=== PATIENT | female | born 1945 | race Caucasian/White ===

== ENCOUNTER 2017-11-27 16:46 | Emergency (ER) | payer MEDICARE, SELFPAY ==
[2017-11-27 16:50] VITALS: BP 122/56; PULSE 82; RESP 16; TEMP 36.3; O2SAT 97
--- NOTE | 2017-11-27 17:36 | W.ED.GENAD ---
Discharge Plan Disposition Patient Disposition: HOME Condition: Stable Discharge Details Chief Complaint: Cellulitis Clinical Impression: Cellulitis of leg, right Primary Care Provider: Homero Villafana ED Provider: Serjio Lagunas Home Meds and New Rx's Prescriptions: New cephalexin 500 mg capsule 500 mg PO QID 7 Days Qty: 28 RF: 0 Continue furosemide 40 MG tablet 40 mg PO BID RF: 0 amiodarone 200 MG tablet 200 mg PO DAILY RF: 0 aspirin [Aspir-81] 81 MG tablet,delayed release (DR/EC) 81 mg PO DAILY RF: 0 lisinopril 10 MG tablet 10 mg PO DAILY RF: 0 metoprolol tartrate 50 MG tablet 50 mg PO DAILY RF: 0 Discharge Instructions Instructions: Cellulitis (ED) Additional Instructions: Return to the emergency department for any new or significant worsening of symptoms, rapid progression of rash, high fevers, or any further concerns he may have. Otherwise take antibiotics as prescribed and until fully gone and follow-up with your primary care provider as needed for reassessment. Referrals: Homero Villafana, [Primary Care Provider] - (As needed for reassessment or if not improving on antibiotic) Discharge Data Discharge Date/Time-TO BE ENTERED AT DEPARTURE: 11/27/17 18:16 Medical Decision Making Patient presenting to the emergency department for chief complaint of reddened rash/cellulitis to right lower leg. She states that 4 weeks ago she had a similar episode that was smaller to the left anterior garza which resolved. 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 3 days ago she had generalized malaise and then noticed a small reddened area to her right medial ankle. Over the past 2 days the redness has spread along with increase in pain and discomfort. Patient denies any fever or other symptoms physical exam is remarkable for patchy erythema to the right lower extremity mostly on the anterior garza. This is not circumferential, there is no edema, there is some warmth. Patient has no calf tenderness, medial thigh tenderness, and denies any chest pain or shortness of breath. Presentation is most likely cellulitis in nature. DVT is also considered in the differential diagnosis but I doubt this being the etiology given no calf or thigh tenderness and that erythema is not uniform and there is no's significant swelling throughout the lower extremity. Patient placed upon Keflex 4 times daily for 7 days and encouraged to return for any rapid progression or worsening of symptoms otherwise follow-up with primary care as needed for reassess. After discussion of diagnosis and plan of care patient is no further needs, questions, or concerns and states clear understanding to return to the emergency department for any worsening symptoms. HPI General Mode of arrival: ambulatory. Date/Time Provider Initiated Documentation: 11/27/17 17:03. Limitations to Documentation: no limitations. Information obtained by: patient, RN notes reviewed and old records reviewed. History of Present Illness 72 year old F presents to the emergency department with the chief complaint of Right leg rash, described as mild, with intensity rated at 5. Quality is described as aching and dull, and is localized to the right and lower extremity. Patient reports no radiation. Patient started experiencing this day(s) (2) and it has been constant. No relieving factors improve symptom(s), No exacerbating factors reported . Patient notes malaise. Patient did receive the following treatments prior to arrival, none Related Data Home Medications Medication Instructions Recorded Confirmed amiodarone 200 mg PO DAILY 11/08/16 11/27/17 aspirin [Aspir-81] 81 mg PO DAILY 11/08/16 11/27/17 furosemide 40 mg PO BID 11/08/16 11/27/17 lisinopril 10 mg PO DAILY 11/08/16 11/27/17 metoprolol tartrate 50 mg PO DAILY 11/08/16 11/27/17 cephalexin 500 mg PO QID 7 Days #28 cap 11/27/17 Previous Rx's Medication Instructions Recorded cephalexin 500 mg PO QID 7 Days #28 cap 11/27/17 Allergies Allergy/AdvReac Type Severity Reaction Status Date / Time Latex, Natural Rubber Allergy Skin Rash Unverified 11/27/17 16:55 General Stated Complaint: Cellulitis VICTORIANO: 4 Review of Systems Constitutional Denies chills, Denies fever(s) and Reports malaise ENT Denies dizziness Cardiovascular Denies chest pain, Denies syncope and Denies dyspnea Respiratory Denies cough and Denies dyspnea Gastrointestinal Denies abdominal pain, Denies nausea and Denies vomiting Musculoskeletal Denies myalgias and Denies arthralgias Integumentary/Breasts Reports as per HPI, Reports erythema, Reports rash and Reports sores Neurologic Denies confusion, Denies dizziness and Denies syncope Psychiatric Denies confusion PFSH Medical History Hypertension (Chronic) Social History Smoking/Tobacco Use Status: Former Tobacco Use Exam Const General: cooperative, no acute distress and not ill appearing Orientation: alert, awake and oriented x3 HENMT Mouth: moist mucous membranes Resp Effort & Inspection: normal respiratory effort, able to speak in complete sentences and no respiratory distress Cardio Rate: regular rate Rhythm: regular rhythm Skin General skin exam: no rashes or lesions noted Neuro General: alert, awake, oriented x3, moves all extremities and no focal motor deficits Sensory Exam: no sensory deficits noted Extrem General: normal exam except as noted Right lower extremity: full ROM, normal capillary refill and lower leg Details: erythema Location: of the mid lower leg Location: anteriorly Left lower extremity: normal to inspection and full ROM Course Vital Signs Temperature 36.3 C L 11/27/17 16:50 Pulse 82 11/27/17 16:50 Respiratory Rate 16 11/27/17 16:50 Blood Pressure 122/56 L 11/27/17 16:50 Pulse Oximetry 97 11/27/17 16:50 Temperature 36.3 C L 11/27/17 16:50 Temperature Source Skin 11/27/17 16:50 Pulse 82 11/27/17 16:50 Respiratory Rate 16 11/27/17 16:50 Respiratory Effort 11/27/17 16:53 Blood Pressure 122/56 L 11/27/17 16:50 Pulse Oximetry 97 11/27/17 16:50 Pain Level 5 11/27/17 16:50
--- NOTE | 2017-11-27 17:44 | ED.GENADUL_ITS ---
Discharge Plan Disposition Patient Disposition: HOME Condition: Stable Discharge Details Chief Complaint: Cellulitis Clinical Impression: Cellulitis of leg, right Primary Care Provider: Homero Villafana ED Provider: Serjio Lagunas Home Meds and New Rx's Prescriptions: New cephalexin 500 mg capsule 500 mg PO QID 7 Days Qty: 28 RF: 0 Continue furosemide 40 MG tablet 40 mg PO BID RF: 0 amiodarone 200 MG tablet 200 mg PO DAILY RF: 0 aspirin [Aspir-81] 81 MG tablet,delayed release (DR/EC) 81 mg PO DAILY RF: 0 lisinopril 10 MG tablet 10 mg PO DAILY RF: 0 metoprolol tartrate 50 MG tablet 50 mg PO DAILY RF: 0 Discharge Instructions Instructions: Cellulitis (ED) Additional Instructions: Return to the emergency department for any new or significant worsening of symptoms, rapid progression of rash, high fevers, or any further concerns he may have. Otherwise take antibiotics as prescribed and until fully gone and follow-up with your primary care provider as needed for reassessment. Referrals: Homero Villafana, [Primary Care Provider] - (As needed for reassessment or if not improving on antibiotic) Discharge Data Discharge Date/Time-TO BE ENTERED AT DEPARTURE: 11/27/17 18:16 Medical Decision Making Patient presenting to the emergency department for chief complaint of reddened rash/cellulitis to right lower leg. She states that 4 weeks ago she had a similar episode that was smaller to the left anterior garza which resolved. 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 3 days ago she had generalized malaise and then noticed a small reddened area to her right medial ankle. Over the past 2 days the redness has spread along with increase in pain and discomfort. Patient denies any fever or other symptoms physical exam is remarkable for patchy erythema to the right lower extremity mostly on the anterior garza. This is not circumferential, there is no edema, there is some warmth. Patient has no calf tenderness, medial thigh tenderness, and denies any chest pain or shortness of breath. Presentation is most likely cellulitis in nature. DVT is also considered in the differential diagnosis but I doubt this being the etiology given no calf or thigh tenderness and that erythema is not uniform and there is no's significant swelling throughout the lower extremity. Patient placed upon Keflex 4 times daily for 7 days and encouraged to return for any rapid progression or worsening of symptoms otherwise follow-up with primary care as needed for reassess. After discussion of diagnosis and plan of care patient is no further needs, questions, or concerns and states clear understanding to return to the emergency department for any worsening symptoms. HPI General Mode of arrival: ambulatory . Date/Time Provider Initiated Documentation: 11/27/17 17:03 . Limitations to Documentation: no limitations . Information obtained by: patient, RN notes reviewed and old records reviewed . History of Present Illness 72 year old F presents to the emergency department with the chief complaint of Right leg rash, described as mild, with intensity rated at 5. Quality is described as aching and dull, and is localized to the right and lower extremity. Patient reports no radiation. Patient started experiencing this day(s) (2) and it has been constant. No relieving factors improve symptom(s) , No exacerbating factors reported . Patient notes malaise. Patient did receive the following treatments prior to arrival, none Related Data Home Medications Medication Instructions Recorded Confirmed amiodarone 200 mg PO DAILY 11/08/16 11/27/17 aspirin [Aspir-81] 81 mg PO DAILY 11/08/16 11/27/17 furosemide 40 mg PO BID 11/08/16 11/27/17 lisinopril 10 mg PO DAILY 11/08/16 11/27/17 metoprolol tartrate 50 mg PO DAILY 11/08/16 11/27/17 cephalexin 500 mg PO QID 7 Days #28 cap 11/27/17 Previous Rx's Medication Instructions Recorded cephalexin 500 mg PO QID 7 Days #28 cap 11/27/17 Allergies Allergy/AdvReac Type Severity Reaction Status Date / Time Latex, Natural Rubber Allergy Skin Rash Unverified 11/27/17 16:55 General Stated Complaint: Cellulitis VICTORIANO: 4 Review of Systems Constitutional Denies chills, Denies fever(s) and Reports malaise ENT Denies dizziness Cardiovascular Denies chest pain, Denies syncope and Denies dyspnea Respiratory Denies cough and Denies dyspnea Gastrointestinal Denies abdominal pain, Denies nausea and Denies vomiting Musculoskeletal Denies myalgias and Denies arthralgias Integumentary/Breasts Reports as per HPI, Reports erythema, Reports rash and Reports sores Neurologic Denies confusion, Denies dizziness and Denies syncope Psychiatric Denies confusion PFSH Medical History Hypertension (Chronic) Social History Smoking/Tobacco Use Status: Former Tobacco Use Exam Const General: cooperative, no acute distress and not ill appearing Orientation: alert, awake and oriented x3 HENMT Mouth: moist mucous membranes Resp Effort & Inspection: normal respiratory effort, able to speak in complete sentences and no respiratory distress Cardio Rate: regular rate Rhythm: regular rhythm Skin General skin exam: no rashes or lesions noted Neuro General: alert, awake, oriented x3, moves all extremities and no focal motor deficits Sensory Exam: no sensory deficits noted Extrem General: normal exam except as noted Right lower extremity: full ROM, normal capillary refill and lower leg Details: erythema Location: of the mid lower leg Location: anteriorly Left lower extremity: normal to inspection and full ROM Course Vital Signs Temperature 36.3 C L 11/27/17 16:50 Pulse 82 11/27/17 16:50 Respiratory Rate 16 11/27/17 16:50 Blood Pressure 122/56 L 11/27/17 16:50 Pulse Oximetry 97 11/27/17 16:50 Temperature 36.3 C L 11/27/17 16:50 Temperature Source Skin 11/27/17 16:50 Pulse 82 11/27/17 16:50 Respiratory Rate 16 11/27/17 16:50 Respiratory Effort 11/27/17 16:53 Blood Pressure 122/56 L 11/27/17 16:50 Pulse Oximetry 97 11/27/17 16:50 Pain Level 5 11/27/17 16:50
[2017-11-27] MEDS: Cephalexin 500 MG CAP PO (18:05)
[2017-11-27] MEDS: Cephalexin 500 MG CAP 1000 MG PO (18:05)
--- NOTE | 2017-12-04 16:37 | W.ED.FU ---
Patient called the emergency department concerned for possible need of more antibiotics. Patient has been on Keflex 500 mg every 6 hours for the past 6 days and noting improvement of symptoms but not full resolution. Patient did state that she may have bumped her leg again and does have a small red spot that is not consistent with the other ones but she is just concerned going into the weekend and almost finishing her antibiotics. Thoroughly discussed with the patient that for any new or worsening symptoms that she needs to be reassessed or reevaluated otherwise that I was willing to extend her Keflex for 3 additional days for a total of 10-day course of Keflex. Due to patient not having full resolution of symptoms towards the end of antibiotics I did inform her that she should obtain a appointment with her primary care provider for reassessment next week for possible need of additional antibiotic therapy or coverage. Patient states that overall she has been having improvement of symptoms and is just more concerned about the weekend. After thorough discussion of recommendation to have primary care follow-up next week , need to return to the emergency department or have reassessment immediately for any worsening symptoms. and that I was willing to extend for 3 days, she states full understanding and no further needs, questions, or concerns at this time. Keflex 500 mg every 6 hours for additional 3 days was called into patient's pharmacy.
== END 2017-11-27 18:16 | disposition home or self-care (01) ==
PROVIDERS: Emergency Provider Nurse Practitioner Family; PCP Emergency Medicine
DX: L03.115 Cellulitis of right lower limb (principal); I10 Essential (primary) hypertension
CPT/HCPCS: 99283

== ENCOUNTER 2018-03-30 16:22 | Emergency (ER) | payer MEDICARE, SELFPAY ==
[2018-03-30 16:28] VITALS: BP 109/89; PULSE 70; RESP 20; TEMP 36.6; O2SAT 98
--- NOTE | 2018-03-30 16:52 | ED.GENADUL_ITS ---
Discharge Plan Disposition Patient Disposition: HOME Condition: Stable Discharge Details Chief Complaint: Orthopedic Clinical Impression: Left ankle sprain Primary Care Provider: Homero Villafana ED Provider: Elisabeth Ugarte Home Meds and New Rx's Prescriptions: Continued furosemide 40 MG tablet 40 mg PO BID RF: 0 amiodarone 200 MG tablet 200 mg PO DAILY RF: 0 aspirin [Aspir-81] 81 MG tablet,delayed release (DR/EC) 81 mg PO DAILY RF: 0 metoprolol tartrate 50 MG tablet 50 mg PO DAILY RF: 0 lisinopril 10 mg tablet 15 mg PO DAILY RF: 0 Discharge Instructions Instructions: Ankle Sprain (ED) Additional Instructions: Rest, ice, elevate left ankle is much as possible. If your symptoms persist or worsen, follow-up with orthopedics. Return to the emergency department with any concerns. Referrals: Loco Newman MD [ [facility] STAFF PHYSICIAN] - Discharge Data Discharge Date/Time-TO BE ENTERED AT DEPARTURE: 03/30/18 18:40 Discharge Physician: Elisabeth Ugarte Medical Decision Making 72-year-old female who presents with left ankle pain and swelling after twisting her ankle 5 days ago. She has healing ecchymosis and edema to the left lateral malleolus. No deformity. Neurovascular intact. Will send for left ankle x-ray. 1800 -- xray notes soft tissue swelling but no acute fracture. Patient advised on rest, ice, elevate. Patient has an [place] wrap and crutches at home and declines [place] wrap or splint here. Patient instructed to follow-up with orthopedics if symptoms persist or worsen, and to return here with any concerns. Medical Records Medical records reviewed: Yes I reviewed the patient's medical records. Imaging Data Radiologic Study: Radiologist's impression: XR Left ankle 3 or more views. FINDINGS: Bones/joints: There is no evidence of acute fracture. Soft tissues: Bimalleolar soft tissue swelling. Well-corticated ossific fragments adjacent to the tarsal bones may represent avulsion fractures of unknown age IMPRESSION: Bimalleolar soft tissue swelling. There is no evidence of acute fracture. HPI General Mode of arrival: ambulatory . Date/Time Provider Initiated Documentation: 03/30/18 16:33 . Limitations to Documentation: no limitations . Information obtained by: patient . HPI Narrative: Patient is a 72-year-old female presents with left ankle pain after slip and fall twisting left ankle 5 days ago. She has been taking ibuprofen for pain. She states she was encouraged to come to the ER by family member for an x-ray. Related Data Home Medications Medication Instructions Recorded Confirmed amiodarone 200 mg PO DAILY 11/08/16 03/30/18 aspirin [Aspir-81] 81 mg PO DAILY 11/08/16 03/30/18 furosemide 40 mg PO BID 11/08/16 03/30/18 metoprolol tartrate 50 mg PO DAILY 11/08/16 03/30/18 lisinopril 10 mg tablet 15 mg PO DAILY tab 02/13/18 03/30/18 Allergies Allergy/AdvReac Type Severity Reaction Status Date / Time Latex, Natural Rubber Allergy Skin Rash Unverified 03/30/18 16:30 General Stated Complaint: Orthopedic VICTORIANO: 3 Review of Systems Review of Systems All systems reviewed & are unremarkable except as noted in HPI and below Constitutional Reports as per HPI, Denies chills and Denies fever(s) Eyes Denies blurry vision ENT Denies dizziness, Denies sore throat and Denies throat swelling Cardiovascular Denies chest pain and Denies dyspnea Respiratory Denies cough and Denies dyspnea Gastrointestinal Denies abdominal pain, Denies diarrhea and Denies vomiting Genitourinary Denies hematuria and Denies dysuria Musculoskeletal Denies back pain and Denies numbness Integumentary/Breasts Denies lesions and Denies rash Neurologic Denies dizziness, Denies focal weakness and Denies numbness Allergic/Immunologic Denies throat swelling [facility] Medical History CHF (congestive heart failure) (Chronic) Hypothyroidism (Chronic) Myocardial infarction (Chronic) Hypertension (Chronic) Surgical History H/O section (Chronic) History of coronary artery stent placement (Chronic) Social History Smoking and Tabacco status: Former Tobacco Use alcohol intake: never substance use type: does not use Exam Const General: cooperative, healthy appearing and no acute distress HENMT Head: normal to inspection Face and sinus: normal facial exam Eyes General: appearance normal, both eyes and all related structures Neck Neck: normal visual inspection Resp Effort & Inspection: normal respiratory effort and able to speak in complete sentences Cardio Rate: regular rate Skin General skin exam: no rashes or lesions noted Neuro General: alert, awake and oriented x3 Cognition: normal cognition Speech: speech normal Extrem Left lower extremity: ankle Details: tenderness Location: of the lateral malleolus, pitting edema (lateral malleolus), ecchymosis (healing, green and yellow extending from distal leg down to ankle) and other (No deformity noted. ) and foot (No left fifth metatarsal tenderness ) Details: vascular exam Details: dorsalis pedis pulse present and posterior tibial pulse present Psych Appearance: grossly normal Mental Status: mental status grossly normal Speech and Movement: speech and movement normal Affect: normal affect Course Vital Signs Temperature 97.9 F 03/30/18 16:28 Pulse 70 03/30/18 16:28 Respiratory Rate 20 03/30/18 16:28 Blood Pressure 109/89 03/30/18 16:28 Pulse Oximetry 98 03/30/18 16:28 Temperature 97.9 F 03/30/18 16:28 Temperature Source Temporal Artery Scan 03/30/18 16:28 Pulse 70 03/30/18 16:28 Respiratory Rate 20 03/30/18 16:28 Respiratory Effort Non-Labored 03/30/18 16:28 Blood Pressure 109/89 03/30/18 16:28 Blood Pressure Position Sitting 03/30/18 16:28 Pulse Oximetry 98 03/30/18 16:28 Oxygen Delivery Method Room Air 03/30/18 16:28 Oxygen Flow Rate 0 03/30/18 16:28 Pain Level 3 03/30/18 16:31
--- NOTE | 2018-03-30 16:58 | DI.RAD_ITS ---
SYMPTOM/DIAGNOSIS: S/P FALL, R/O ACUTE FRACTURE LEFT ANKLE: 3 views. No acute fracture or dislocation is seen. Well corticated osseous fragments are seen adjacent to the tarsal bones and the calcaneus. There is a small calcaneal spur. There is soft tissue swelling seen around the ankle bilaterally. IMPRESSION: No definite acute fracture or dislocation.
--- NOTE | 2018-03-30 17:52 | DI.VRAD_ITS ---
EXAM: XR Left Ankle Complete, 3 or more Views EXAM DATE/TIME: 03/30/2018 5:01 PM CLINICAL HISTORY: 72 years old, female; Pain; Ankle; Left; Patient HX: Pain left ankle TECHNIQUE: XR Left ankle 3 or more views. COMPARISON: No relevant prior studies available. FINDINGS: Bones/joints: There is no evidence of acute fracture. Soft tissues: Bimalleolar soft tissue swelling. Well-corticated ossific fragments adjacent to the tarsal bones may represent avulsion fractures of unknown age IMPRESSION: Bimalleolar soft tissue swelling. There is no evidence of acute fracture. Dictated and Authenticated by: Caryn Andrade MD. Ordering:RYANN Barber MD
== END 2018-03-30 18:40 | disposition home or self-care (01) ==
PROVIDERS: Emergency Provider Physician Assistant; PCP Emergency Medicine
DX: S93.402A Sprain of unspecified ligament of left ankle, initial encounter (principal); W01.0XXA Fall on same level from slipping, tripping and stumbling without subsequent striking against object, initial encounter
CPT/HCPCS: 99283; 73610; 99282

== ENCOUNTER 2018-06-30 11:19 | Outpatient (CLI) | payer MEDICARE, SELFPAY ==
--- NOTE | 2018-06-30 11:14 | DI.RAD_ITS ---
SYMPTOMS/DIAGNOSIS: PAIN RIGHT SHOULDER: There is spurring at the AC joint. There is spurring at the undersurface of the acromion, as well as glenoid and greater tuberosity. There is a question of some narrowing of the acromiohumeral distance, which could indicate a chronic rotator cuff tear. A loose body is seen involving the level of the glenoid. IMPRESSION: Degenerative changes and joint space loose body. Probable chronic rotator cuff tear.
== END 2018-06-30 11:39 ==
PROVIDERS: PCP Emergency Medicine; Referring Provider Emergency Medicine; Visit Provider Orthopaedic Surgery
DX: M25.511 Pain in right shoulder (principal); M19.011 Primary osteoarthritis, right shoulder; M24.011 Loose body in right shoulder; M75.100 Unspecified rotator cuff tear or rupture of unspecified shoulder, not specified as traumatic
CPT/HCPCS: 20610; 99201; 99213; 73030; J1040

== ENCOUNTER → 2018-08-11 11:01 | Outpatient (BNVA) | payer MEDICARE, SELFPAY | PROVIDERS: PCP Emergency Medicine; Referring Provider Emergency Medicine; Visit Provider Orthopaedic Surgery | DX: M25.511 Pain in right shoulder (principal); Z95.810 Presence of automatic (implantable) cardiac defibrillator; I11.0 Hypertensive heart disease with heart failure; I50.9 Heart failure, unspecified | CPT/HCPCS: 20610; 99213; J1040 ==

== ENCOUNTER 2019-04-06 16:02 | Outpatient (CLI) | payer MEDICARE, SELFPAY ==
--- NOTE | 2019-04-06 09:15 | DI.RAD_ITS ---
EXAM: XR SHOULDER LT COMPLETE 2+V INDICATION: pain. COMPARISON: XR shoulder RT complete 2+V from 06/30/2018 TECHNIQUE: 2D digital imaging was performed. FINDINGS: There are degenerative changes in the left shoulder particularly at the acromioclavicular joint and t he greater tuberosity. No acute fracture or dislocation is present. The soft tissues are unremarkab le. IMPRESSION: Mild degenerative changes.
== END 2019-04-06 16:22 ==
PROVIDERS: PCP Emergency Medicine; Referring Provider Emergency Medicine; Visit Provider Orthopaedic Surgery
DX: M25.512 Pain in left shoulder (principal); M19.012 Primary osteoarthritis, left shoulder; M75.101 Unspecified rotator cuff tear or rupture of right shoulder, not specified as traumatic; M75.82 Other shoulder lesions, left shoulder
CPT/HCPCS: 20610; 99214; 73030; J1040

== ENCOUNTER 2019-06-21 13:31 | Emergency (ER) | payer MEDICARE, SELFPAY ==
[2019-06-21] VITALS (15 sets, daily range): BP systolic 133–160; BP diastolic 82–89; PULSE 63–89; RESP 4–21; TEMP 36.6; O2SAT 97–100
--- NOTE | 2019-06-21 13:42 | ED.GENADUL_ITS ---
Discharge Plan Disposition Patient Disposition: HOME Condition: Stable Discharge Details Chief Complaint: Fever Clinical Impression: Acute bronchitis Primary Care Provider: Homero Villafana ED Provider: Elisabeth Ugarte Home Meds and New Rx's Prescriptions: New prednisone 20 mg tablet See Rx Instructions .ROUTE .COMPLEX Qty: 12 RF: 0 albuterol sulfate 90 mcg/actuation aerosol powdr breath activated 2 inh IH Q6H PRN (Reason: shortness of breath or wheezing) Qty: 1 RF: 0 codeine-guaifenesin 10-100 mg/5 mL liquid 10 ml PO Q6H PRN (Reason: cough) Qty: 100 RF: 0 Continued ibuprofen 200 mg capsule 200 mg PO QID PRNRF: 0 tramadol 50 mg tablet 50 mg PO Q8H PRNRF: 0 furosemide 40 MG tablet 40 mg PO DAILY RF: 0 amiodarone 200 MG tablet 200 mg PO DAILY RF: 0 aspirin [Aspir-81] 81 MG tablet,delayed release (DR/EC) 81 mg PO DAILY RF: 0 metoprolol tartrate 50 MG tablet 50 mg PO DAILY RF: 0 lisinopril 10 mg tablet 15 mg PO DAILY RF: 0 Discharge Instructions Instructions: Acute Bronchitis (ED) Additional Instructions: Drink plenty of fluids and get plenty of rest. Take the steroids until finished. Use the albuterol inhaler as needed and directed for shortness of breath or cough. Take the cough medicine at night to help with coughing and sleep. Follow-up with your primary care doctor in 1 week. Return to the emergency department with any worsening or new concerning symp toms. Discharge Data Discharge Date/Time-TO BE ENTERED AT DEPARTURE: 06/21/19 16:34 Discharge Physician: Elisabeth Ugatre Medical Decision Making [id number] -- 74-year-old female with a history of CHF, hypertension, myocardial infarction with coronary stents and ICD placement presents for dry cough and intermittent shortness of breath over the past 5 days. Triage note stated slurred speech and difficulty with coming up with words but patient states this is been chronic for years and no worse than usual. She states she would not have come to the ER if not for the insistence of her children for further evaluation of her cough. She has scattered wheezing right chest. No lower extremity edema. She appears nontoxic. No focal deficits. Differential diagnosis includes bronchitis, pneumonia, CHF exacerbation, [place], allergies, GERD. History and presentation not consistent with acute CVA. Will place an IV, screening labs, neb treatment, p.o. steroids, chest x-ray and CT head. 1545 --labs and imaging reviewed. Normal white blood cell count. Troponin negative. BNP 2426. CT head and chest x-ray negative. Patient reassessed -- she is requesting to go home. She states she feels better. Reassessment of lungs clear without wheezing, rales or rhonchi. Vitals within normal limits. She is speaking in full sentences and no signs of respiratory distress. Discussed with patient that presentation most likely resembles bronchitis and will plan to treat with p.o. steroids, albuterol inhaler and Robitussin with codeine. She has no reported fever, normal white blood cell count and no sputum production, will hold on antibiotics. Results also discussed with patient's son. He is advised to have patient call the PCP office this week for follow-up and to return with any worsening symptoms. Medical Records Medical records reviewed: Yes I reviewed the patient's medical records. Imaging Data Radiologic Study: Radiologist's impression: CT HEAD WO CLINICAL HISTORY: slurred speech, difficulty w/ words. TECHNIQUE: Imaging Protocol: Axial computed tomography images with coronal and sagittal reformatted images were created and reviewed COMPARISON: No exams were available for comparison FINDINGS: No intracranial hemorrhage, mass or acute infarct is seen. There is akyg-[id number] atrophy as well as white matter changes likely representing small vessel disease. Ventricles are within normal limits in size. There is no skull fracture. There is mucosal thickening of the left frontal and left maxillary sinus. IMPRESSION: No acute intracranial process. XR PORTABLE CHEST AP CLINICAL HISTORY: <cough, sob, r/o acute disease> TECHNIQUE: 2D digital imaging was performed. COMPARISON: CHEST 2 VIEWS PA,LAT from 12/01/2011 FINDINGS: LUNGS: Clear. No pleural abnormality seen. HEART: Heart size is normal. Coronary artery stents are seen. A pacemaker is noted. MEDIASTINUM: Normal. IMPRESSION: No acute pulmonary findings. Lab Data Lab results reviewed: Yes I reviewed the patient's lab results. Labs: Laboratory Tests Range/Units 06/21/19 06/21/19 14:20 14:20 WBC (4.4-10.8) k/cumm 8.40 RBC (4.00-5.20) m/cumm 4.32 Hgb (12.0-15.5) g/dL 13.9 Hct (36.0-46.0) % 42.2 MCV (80-95) fL 97.7 H MCH (27.0-33.0) pg 32.2 MCHC (32.0-36.0) g/dL 32.9 RDW (11.7-14.6) % 13.6 Plt Count (130-400) x1000/uL 234 MPV (8.0-11.0) fL 10.1 Immature Gran % % 0.1 Neutrophils % 68.8 Lymphocytes % 17.7 Monocytes % 8.7 Eosinophils % 4.3 Basophils % 0.4 Absolute Neutrophils (1.2-6.7) k/cumm 5.78 Absolute Lymphocytes (1.2-3.4) k/cumm 1.49 Absolute Monocytes (0.11-0.7) k/cumm 0.73 H Absolute Eosinophils (0.0-0.7) k/cumm 0.36 Absolute Basophils (0.0-0.2) k/cumm 0.03 Sodium (136-145) mmol/L 136 Potassium (3.5-5.1) mmol/L 4.8 Chloride (98-107) mmol/L 103 Carbon Dioxide (21.0-32.0) mmol/L 26.1 Anion Gap (3-11) mmol/L 6.9 BUN (7-18) mg/dL 27 H Creatinine (0.55-1.02) mg/dL 1.32 H Estimated GFR/1.73 m2 (mL/min/1.73m2) 39.34 Glucose (74-106) mg/dL 94 Calcium (8.5-10.1) mg/dL 9.2 Magnesium (1.8-2.4) mg/dL 2.1 Total Bilirubin (0.2-1.0) mg/dL 0.5 AST (15-37) U/L 19 ALT (14-59) U/L 23 Alkaline Phosphatase (46-116) U/L 84 Troponin I (<0.06) ng/Ml < 0.05 NT-Pro-B Natriuret Pep (<300) pg/mL 2426 H Total Protein (6.4-8.2) g/dL 6.8 Albumin (3.4-5.0) g/dL 3.7 ECG Data Attestation: I personally reviewed and interpreted this ECG (s) as follows: Interpretation: Rate of 71, sinus, occasional PVCs. No acute ST elevation or depression. HI 168. QTc 417. QRS 94. HPI General Mode of arrival: ambulatory . Date/Time Provider Initiated Documentation: 06/21/19 13:35 . Limitations to Documentation: no limitations . Information obtained by: patient . HPI Narrative: Patient is a 74-year-old female with a history of CHF, myocardial infarction with coronary stent placement, ICD, hypothyroidism who presents with dry cough and intermittent shortness of breath over the past 5 days. Patient states the cough is worse at night and keeping her up at times. She has taken Masury medication without relief. She admits to occasional shortness of breath which she states is not unusual for her at times chronically. She denies any fever, chest pain, vomiting, diarrhea, urinary symptoms or abdominal pain. She does admit to decreased appetite. She denies any recent travel, exposure to contact with coronavirus. Triage note also stated that patient has had slurred speech and difficulty finding words. Patient states this is been chronic for several years and no worse than usual. She states her children say that she has this issue for years and they get frustrated with her. She states she only came here because of the cough and would not of, if not for the insistence of her children. Related Data Home Medications Medication Instructions Recorded Confirmed amiodarone 200 mg PO DAILY 11/08/16 04/06/19 aspirin [Aspir-81] 81 mg PO DAILY 11/08/16 06/21/19 furosemide 40 mg PO DAILY 11/08/16 06/21/19 metoprolol tartrate 50 mg PO DAILY 11/08/16 04/06/19 lisinopril 10 mg tablet 15 mg PO DAILY tab 02/13/18 06/21/19 ibuprofen 200 mg capsule 200 mg PO QID PRN 06/19/18 06/21/19 tramadol 50 mg tablet 50 mg PO Q8H PRN 04/06/19 04/06/19 albuterol sulfate 2 inh IH Q6H PRN #1 each 06/21/19 codeine-guaifenesin 10 ml PO Q6H PRN #100 ml 06/21/19 prednisone See Rx Instructions .ROUTE 06/21/19 .COMPLEX #12 tab Previous Rx's Medication Instructions Recorded albuterol sulfate 2 inh IH Q6H PRN #1 each 06/21/19 codeine-guaifenesin 10 ml PO Q6H PRN #100 ml 06/21/19 prednisone See Rx Instructions .ROUTE 06/21/19 .COMPLEX #12 tab Allergies Allergy/AdvReac Type Severity Reaction Status Date / Time Latex, Natural Rubber Allergy Skin Rash Verified 06/21/19 13:58 General VICTORIANO: 3 Review of Systems All systems reviewed & are unremarkable except as noted in HPI and below Constitutional Constitutional: Reports as per HPI, Denies chills and Denies fever(s) Eyes Eyes: Denies blurry vision ENT Ears, Nose, Mouth, and Throat: Denies dizziness, Denies sore throat and Denies throat swelling Cardiovascular Cardiovascular: Denies chest pain and Reports dyspnea Respiratory Respiratory: Reports cough and Reports dyspnea Gastrointestinal Gastrointestinal: Denies abdominal pain, Denies diarrhea and Denies vomiting Genitourinary Genitourinary: Denies hematuria and Denies dysuria Musculoskeletal Musculoskeletal: Denies back pain and Denies numbness Integumentary/Breasts Skin/Breast: Denies lesions and Denies rash Neurologic Neurologic: Denies dizziness, Denies localized weakness and Denies numbness Allergic/Immunologic Allergic/Immunologic: Denies throat swelling [facility] Medical History (Updated 06/21/19 @ 15:49 by Elisabeth Ugarte DO) CHF (congestive heart failure) (Chronic) Hypertension (Chronic) Hypothyroidism (Chronic) Myocardial infarction (Chronic) : post STEMI and VT/ PCI to LAD:10-29 LVEF stable at 30-35% followed at [facility] Surgical History H/O section (Chronic) History of coronary artery stent placement (Chronic) Social History Smoking/Tobacco Use Status: Former Tobacco Use Alcohol Intake: never Drug use: Never Substance use type: does not use Do you feel safe at home: Yes Do you feel safe in your relationship?: Yes Exam Const General: cooperative and no acute distress Orientation: alert, awake and oriented x3 HENMT Head: normal to inspection Face and sinus: normal facial exam Eyes General: appearance normal, both eyes and all related structures EOM: EOM intact bilaterally Neck Neck: normal visual inspection and No submandibular swelling Lymphatic: no lymphadenopathy noted Chest Chest: normal inspection of the chest and no tenderness Resp Effort & Inspection: normal respiratory effort and able to speak in complete sentences Auscultation: clear to auscultation bilaterally, no rales, no rhonchi and wheezes right lower and right upper Cardio Rate: regular rate Rhythm: regular rhythm GI Inspection: normal to inspection Palpation: soft, not firm, not rigid and nontender Auscultation: normal bowel sounds Skin General skin exam: no rashes or lesions noted Neuro General: patient alert, patient awake and patient oriented x3 Cranial Nerves: CN's II-XI intact bilaterally Cognition: normal cognition Speech: speech normal Motor: muscle tone normal throughout and strength 5/5 throughout Sensory Exam: no sensory deficits noted Extrem General: normal to inspection, full ROM, capillary refill normal, no calf tenderness bilaterally and no edema Psych Appearance: grossly normal Mental Status: mental status grossly normal Speech and Movement: speech and movement normal Affect: normal affect
--- NOTE | 2019-06-21 14:00 | DI.RAD_ITS ---
EXAM: XR PORTABLE CHEST AP CLINICAL HISTORY: <cough, sob, r/o acute disease> TECHNIQUE: 2D digital imaging was performed. COMPARISON: CHEST 2 VIEWS PA,LAT from 12/01/2011 FINDINGS: LUNGS: Clear. No pleural abnormality seen. HEART: Heart size is normal. Coronary artery stents are seen. A pacemaker is noted. MEDIASTINUM: Normal. IMPRESSION: No acute pulmonary findings. DATA REPOSITORY: RADIATION DOSE DELIVERED:
--- NOTE | 2019-06-21 14:15 | DI.CT_ITS ---
EXAM: CT HEAD WO CLINICAL HISTORY: slurred speech, difficulty w/ words. TECHNIQUE: Imaging Protocol: Axial computed tomography images with coronal and sagittal reformatted images were created and reviewed COMPARISON: No exams were available for comparison FINDINGS: No intracranial hemorrhage, mass or acute infarct is seen. There is [id number] atrophy as well as white matter changes likely representing small vessel disease. Ventricles are within normal limi ts in size. There is no skull fracture. There is mucosal thickening of the left frontal and left ma xillary sinus. IMPRESSION: No acute intracranial process. RADIATION DOSE DELIVERED: Total DLP DATA REPOSITORY: All CT scans at this facility are submitted to the National Radiology Data Registry (NRDR) Dose Index Registry (DIR) with the [employer] ([employer]). RADIATION OPTIMIZATION: All CT scans at this facility use at least one of these dose optimization te chniques: automated exposure control; mA and/or kV adjustment per patient size (includes targeted exa ms where dose is matched to clinical indication); or iterative reconstruction.
[2019-06-21 14:27] LABS: Abs Immature Grans 0.01 k/cumm (0.0-0.09); Absolute Basophil Count 0.03 k/cumm (0.0-0.2); Absolute Eosinophil Count 0.36 k/cumm (0.0-0.7); Absolute Lymphocyte Count 1.49 k/cumm (1.2-3.4); Absolute Monocyte Count 0.73 k/cumm (0.11-0.7); Absolute Neutrophil Count 5.78 k/cumm (1.2-6.7); Basophils % 0.4; Eosinophils % 4.3; HCT 42.2 % (36.0-46.0); HGB 13.9 g/dL (12.0-15.5); Immature Grans % 0.1 %; Lymphocytes % 17.7; Mean Corp. HGB Concentration 32.9 g/dL (32.0-36.0); Mean Corpuscular Hemoglobin 32.2 pg (27.0-33.0); Mean Corpuscular Volume 97.7 fL (80-95); Mean Platelet Volume 10.1 fL (8.0-11.0); Monocytes % 8.7; Neutrophils % 68.8; Platelet Count 234 x1000/uL (130-400); RBC 4.32 m/cumm (4.00-5.20); RBC Distribution Width 13.6 % (11.7-14.6)
[2019-06-21] MEDS: predniSONE 20 MG TAB 60 MG PO (14:45)
[2019-06-21] MEDS: Albuterol/Ipratropium 3 ML UPD VIAL UPD (14:46)
[2019-06-21 14:47] LABS: ALT 23 U/L (14-59); AST 19 U/L (15-37); Albumin 3.7 g/dL (3.4-5.0); Alkaline Phosphatase 84 U/L (46-116); Anion Gap 6.9 mmol/L (3-11); BUN 27 mg/dL (7-18); Bilirubin, Total 0.5 mg/dL (0.2-1.0); CO2 26.1 mmol/L (21.0-32.0); CREATININE 1.32 mg/dL (0.55-1.02); Calcium 9.2 mg/dL (8.5-10.1); Chloride 103 mmol/L (98-107); Estimated GFR 39.34 (mL/min/1.73m2); Glucose 94 mg/dL (74-106); Magnesium 2.1 mg/dL (1.8-2.4); NT-proBNP 2426 pg/mL (<300); Potassium 4.8 mmol/L (3.5-5.1); Sodium 136 mmol/L (136-145); Total Protein 6.8 g/dL (6.4-8.2)
[2019-06-21 14:50] LABS: Troponin I < 0.05 ng/Ml (<0.06)
[2019-06-21] MEDS: Normal Saline Flush 10 ML SYR IVP (17:11)
[2019-06-21 23:53] LABS: COVID-19 RT-PCR UVMMC Result Negative (Negative)
== END 2019-06-21 16:34 | disposition home or self-care (01) ==
LOC: ER 16:27
PROVIDERS: Emergency Provider Physician Assistant; PCP Emergency Medicine
DX: R06.02 Shortness of breath (principal); J20.9 Acute bronchitis, unspecified; R47.81 Slurred speech; I10 Essential (primary) hypertension; Z87.891 Personal history of nicotine dependence
CPT/HCPCS: 36415; 80053; 93005; 94640; 99285; U0003; 70450; 71045; 83735; 83880; 84484; 85025; 93010; 99284; J7512; J7620

== ENCOUNTER 2019-10-04 02:23 | Outpatient (CLI) | payer MEDICARE, SELFPAY ==
[2019-10-04 14:35] LABS: Anion Gap 10.2 mmol/L (3-11); BUN 25 mg/dL (7-18); CO2 24.8 mmol/L (21.0-32.0); CREATININE 1.36 mg/dL (0.55-1.02); Calcium 9.4 mg/dL (8.5-10.1); Chloride 103 mmol/L (98-107); Estimated GFR 38.01 (mL/min/1.73m2); Glucose 98 mg/dL (74-106); Potassium 5.2 mmol/L (3.5-5.1); Sodium 138 mmol/L (136-145)
== END 2019-10-04 02:43 ==
PROVIDERS: PCP Emergency Medicine; Visit Provider Nurse Practitioner
DX: I50.22 Chronic systolic (congestive) heart failure (principal)
CPT/HCPCS: 36415; 80048

== ENCOUNTER 2020-05-29 15:15 | Outpatient (REF) | payer MEDICARE, SELFPAY ==
[2020-05-29 21:39] LABS: Abs Immature Grans 0.03 10^3/uL (0.0-0.06); Absolute Basophil Count 0.05 10^3/uL (0.0-0.2); Absolute Eosinophil Count 0.29 10^3/uL (0.0-0.7); Absolute Lymphocyte Count 1.29 10^3/uL (1.2-3.4); Absolute Monocyte Count 0.76 10^3/uL (0.1-0.8); Absolute Neutrophil Count 5.44 10^3/uL (1.2-6.7); Basophils % 0.6; Eosinophils % 3.7; HCT 43.6 % (36.0-46.0); Immature Grans % 0.4; Lymphocytes % 16.4; MCH 31.3 pg (27.0-33.0); MCHC 32.1 % (32.0-36.0); MCV 97.3 fL (80-95); MPV 11.5 fL (8.0-11.0); Monocytes % 9.7; Neutrophils % 69.2; Nucleated RBC 0 %; Platelet Count 248 10^3/uL (130-400); RBC 4.48 10^6/uL (3.93-5.22); RDW 13.3 % (11.7-14.6); RDW-SD 48.3 fL; WBC 7.86 10^3/uL (4.4-10.8)
[2020-05-29 21:48] LABS: Anion Gap 8.3 mmol/L (3-11); BUN 40 mg/dL (7-18); CO2 29.7 mmol/L (21.0-32.0); CREATININE 1.7 mg/dL (0.55-1.02); Calcium 9.6 mg/dL (8.5-10.1); Chloride 100 mmol/L (98-107); Glucose 102 mg/dL (74-106); Potassium 4.7 mmol/L (3.5-5.1); Sodium 138 mmol/L (136-145)
== END 2020-05-29 15:16 | disposition home or self-care (01) ==
LOC: NCHCN 15:15
PROVIDERS: PCP Emergency Medicine; Visit Provider Nurse Practitioner Family
DX: R19.7 Diarrhea, unspecified (principal)
CPT/HCPCS: 80048; 85025

== ENCOUNTER 2020-05-30 14:37 | Outpatient (REF) | payer MEDICARE, SELFPAY ==
[2020-05-30 10:42] LABS: C Diff PCR Negative (Negative)
[2020-05-30 20:54] LABS: Campylobacter PCR Negative (Negative); Salmonella PCR Negative (Negative); Shiga Toxin PCR Negative (Negative); Shigella/Enteroinvasive Ecoli Negative (Negative)
== END 2020-05-30 14:38 | disposition home or self-care (01) ==
LOC: NCHCN 14:37
PROVIDERS: PCP Emergency Medicine; Visit Provider Nurse Practitioner Family
DX: R19.7 Diarrhea, unspecified (principal)
CPT/HCPCS: 87329; 87493; 87505; 83630; 87177

== ENCOUNTER 2020-06-02 16:39 | Outpatient (REF) | payer MEDICARE, SELFPAY ==
[2020-06-02 21:14] LABS: ALT 20 U/L (14-59); AST 21 U/L (15-37); Albumin 3.9 g/dL (3.4-5.0); Alkaline Phosphatase 81 U/L (46-116); Anion Gap 9.1 mmol/L (3-11); BUN 38 mg/dL (7-18); Bilirubin, Total 0.4 mg/dL (0.2-1.0); C-Reactive Protein 1.32 mg/dL (0.0-0.3); CO2 28.9 mmol/L (21.0-32.0); CREATININE 1.8 mg/dL (0.55-1.02); Calcium 9.6 mg/dL (8.5-10.1); Chloride 101 mmol/L (98-107); Estimated GFR 27.43 (mL/min/1.73m2); Glucose 93 mg/dL (74-106); Potassium 4.5 mmol/L (3.5-5.1); Sodium 139 mmol/L (136-145); TSH 5.96 uIU/mL (0.36-3.74); Total Protein 6.3 g/dL (6.4-8.2)
== END 2020-06-02 16:40 | disposition home or self-care (01) ==
LOC: LBN 16:39
PROVIDERS: PCP Emergency Medicine; Visit Provider Emergency Medicine
DX: E03.9 Hypothyroidism, unspecified (principal); R19.7 Diarrhea, unspecified
CPT/HCPCS: 80053; 84443; 86140

== ENCOUNTER 2020-06-03 21:01 | Outpatient (REF) | payer MEDICARE, SELFPAY | END 2020-06-03 21:02 | disposition home or self-care (01) | LOC: LBN 21:01 | PROVIDERS: PCP Emergency Medicine; Visit Provider Emergency Medicine | DX: R19.7 Diarrhea, unspecified (principal) | CPT/HCPCS: 87329 ==

== ENCOUNTER 2020-07-14 08:36 | Emergency (ER) | payer MEDICARE, SELFPAY ==
[2020-07-14] VITALS (24 sets, daily range): BP systolic 84–123; BP diastolic 41–81; PULSE 54–131; RESP 8–45; TEMP 36.4; O2SAT 80–99
--- NOTE | 2020-07-14 08:15 | RT.EKG_ITS ---
APPROVED REPORT Exam: Resting ECG Reason for Exam: general illness, vomiting Patient Location: E HR:122 bpm ECG Measurements Heart Rate 122 AXIS MN [id number] P 0 QRSd 205 QRS -170 QT 445 T -18 QTc 634 Conclusion Sinus tachycardia...rate> 99 RBBB and LPFB...QRSd >120mS, axis(90,210) Inferior infarct, age indeterminate...Q>35mS, T neg, II III aVF ST depr, consider ischemia, anterolateral lds...ST <-0.10mV, I aVL V2-V6
--- NOTE | 2020-07-14 08:26 | W.ED.GENAD ---
Discharge Plan Disposition Patient Disposition: [facility] Condition: Serious Discharge Details Clinical Impression: Ventricular tachycardia, Encounter for cardioversion procedure, Elevated troponin, Acute kidney injury superimposed on chronic kidney disease, Acute CHF, Vomiting Primary Care Provider: Homero Villafana ED Provider: Elisabeth Ugarte Home Meds and New Rx's Prescriptions: No Action ibuprofen 200 mg capsule 200 mg PO QID PRNRF: 0 Entresto 24-26 mg tablet 1 tab PO BID RF: 0 fluticasone propionate [Flonase Allergy Relief] 50 mcg/actuation spray,suspension 2 spray ALFREDO DAILY Qty: 18.2 RF: 0 albuterol sulfate [Ventolin HFA] 90 mcg/actuation HFA aerosol inhaler 2 puff inhalation QID Qty: 18 RF: 6 levothyroxine 50 mcg tablet 50 mcg PO DAILY Qty: 90 RF: 0 furosemide 40 MG tablet 40 mg PO DAILY RF: 0 amiodarone 200 MG tablet 200 mg PO DAILY RF: 0 aspirin [Aspir-81] 81 MG tablet,delayed release (DR/EC) 81 mg PO DAILY RF: 0 metoprolol tartrate 50 MG tablet 50 mg PO DAILY RF: 0 Discharge Data Discharge Date/Time-TO BE ENTERED AT DEPARTURE: 07/14/20 11:50 Medical Decision Making 0834 -- 75-year-old female with a history of CHF, STEMI, ICD, coronary stent presents from home for 3 days of generalized weakness, shortness of breath worse with exertion and when supine and vomiting five times last evening. Blood pressure 105/53. Heart rate 120s. EKG notes a rate of 122, sinus, right bundle branch block, left posterior fascicular block with significant ST depressions with concern for potential elevation in anterior lateral leads. Old EKG from [facility] in August 2019 notes this appears new. Patient appears significantly dehydrated with significantly dry mucous membranes. She has wheezing left side of her chest. She has no lower extremity edema. Differential diagnosis includes acute CHF exacerbation, STEMI, GI viral illness, electrolyte abnormality, UTI, arrhythmia. Will place an IV, start with gentle hydration as she appears dehydrated and give her her daily dose of Lasix. Will check screening labs, two view chest x-ray and give a DuoNeb and reassess. [facility] cardiology consult initiated for review of EKG and potential transfer. 0945 -- Labs reviewed. White blood cell count 21. Potassium 5.8. Creatinine 2.8, increased from 1.8. Magnesium 3.5. Trop 4.8. BNP . Chest x-ray notes mild cardiomegaly and question early CHF. Considering patient's hypotension and concern for dehydration in the setting of CHF, will place on BiPAP as she appears to have a mild increase in work of breathing. Case discussed with [facility] compounding assistant who reviewed EKG and feels that this is consistent with ventricular tachycardia. Suspect that she has been in ventricular tachycardia for the past few days causing her symptoms. Recommends emergent cardioversion at 200 J. Recommends amio bolus and drip. If no successful cardioversion, can consider second shock and lidocaine bolus and drip. If patient becomes hypotensive, consider norepinephrine. Accepting physician Dr. Gonzalez. Recommend a dose of Zosyn if concern for infection - will order, urinalysis not yet obtained. EKG post cardioversion notes a rate of 66 and sinus. Patient tolerated procedure well. She was monitored at bedside by nurse and respiratory. 1045 -- patient with hypotension of 87/51 status post cardioversion. Will start norepi gtt. Patient is now awake and alert and states she feels better. BP 103/58 prior to transfer. Medical Records Medical records reviewed: Yes I reviewed the patient's medical records. Imaging Data Radiologic Study: Radiologist's impression: XR CHEST 2V PA LATERAL CLINICAL HISTORY: shortness of breath, r/o acute disease TECHNIQUE: COMPARISON: CR XR PORTABLE CHEST AP from 06/21/2019 FINDINGS: There is a transvenous cardiac pacemaker in position. There appears to be mild cardiomegaly. The lungs are predominantly clear with question of minimal chronic reticular radial densities seen peripherally. These findings may be new since prior examination of June 21, 2019. Findings could represent early CHF. No gross pleural effusion identified. IMPRESSION: Mild cardiomegaly, question early CHF. Lab Data Lab results reviewed: Yes I reviewed the patient's lab results. Labs: Laboratory Tests Range/Units 07/14/20 07/14/20 07/14/20 08:34 08:50 08:50 WBC (4.4-10.8) 10^3/uL 21.69 H RBC (3.93-5.22) 10^6/uL 5.11 Hgb (11.2-15.7) g/dL 16.1 H Hct (36.0-46.0) % 49.9 H MCV (80-95) fL 97.7 H MCH (27.0-33.0) pg 31.5 MCHC (32.0-36.0) % 32.3 RDW (11.7-14.6) % 14.1 Plt Count (130-400) 10^3/uL 300 MPV (8.0-11.0) fL 10.6 Immature Gran % 0.7 Neutrophils % 86.3 Lymphocytes % 5.3 Monocytes % 7.5 Eosinophils % 0.0 Basophils % 0.2 Nucleated RBC % % 0 Absolute Neutrophils (1.2-6.7) 10^3/uL 18.72 H Absolute Lymphocytes (1.2-3.4) 10^3/uL 1.15 L Absolute Monocytes (0.1-0.8) 10^3/uL 1.63 H Absolute Eosinophils (0.0-0.7) 10^3/uL 0.00 Absolute Basophils (0.0-0.2) 10^3/uL 0.04 RBC Morphology Normal PT (9.3-11.0) sec INR (0.9-1.1) APTT (21.0-27.5) sec Sodium (136-145) mmol/L 136 Potassium (3.5-5.1) mmol/L 5.8 H Chloride (98-107) mmol/L 98 Carbon Dioxide (21.0-32.0) mmol/L 25.8 Anion Gap (3-11) mmol/L 12.2 H BUN (7-18) mg/dL 48 H Creatinine (0.55-1.02) mg/dL 2.8 H Estimated GFR/1.73 m2 (mL/min/1.73m2) 16.47 Glucose (74-106) mg/dL 179 H Calcium (8.5-10.1) mg/dL 10.0 Magnesium (1.8-2.4) mg/dL 3.5 H Total Bilirubin (0.2-1.0) mg/dL 0.8 AST (15-37) U/L 44 H ALT (14-59) U/L 38 Alkaline Phosphatase (46-116) U/L 112 Troponin I (<0.06) ng/mL 0.48 H* NT-Pro-B Natriuret Pep (<300) pg/mL Total Protein (6.4-8.2) g/dL 7.6 Albumin (3.4-5.0) g/dL 4.1 Urine Color Cancelled Urine Clarity Cancelled Urine pH Cancelled Ur Specific [place] Cancelled Urine Protein Cancelled Urine Ketones Cancelled Urine Blood Cancelled Urine Nitrite Cancelled Urine Bilirubin Cancelled Urine Urobilinogen Cancelled Ur Leukocyte Esterase Cancelled Urine Glucose Cancelled Range/Units 07/14/20 07/14/20 08:50 08:50 WBC (4.4-10.8) 10^3/uL RBC (3.93-5.22) 10^6/uL Hgb (11.2-15.7) g/dL Hct (36.0-46.0) % MCV (80-95) fL MCH (27.0-33.0) pg MCHC (32.0-36.0) % RDW (11.7-14.6) % Plt Count (130-400) 10^3/uL MPV (8.0-11.0) fL Immature Gran % Neutrophils % Lymphocytes % Monocytes % Eosinophils % Basophils % Nucleated RBC % % Absolute Neutrophils (1.2-6.7) 10^3/uL Absolute Lymphocytes (1.2-3.4) 10^3/uL Absolute Monocytes (0.1-0.8) 10^3/uL Absolute Eosinophils (0.0-0.7) 10^3/uL Absolute Basophils (0.0-0.2) 10^3/uL RBC Morphology PT (9.3-11.0) sec 11.2 H INR (0.9-1.1) 1.1 APTT (21.0-27.5) sec 24.4 Sodium (136-145) mmol/L Potassium (3.5-5.1) mmol/L Chloride (98-107) mmol/L Carbon Dioxide (21.0-32.0) mmol/L Anion Gap (3-11) mmol/L BUN (7-18) mg/dL Creatinine (0.55-1.02) mg/dL Estimated GFR/1.73 m2 (mL/min/1.73m2) Glucose (74-106) mg/dL Calcium (8.5-10.1) mg/dL Magnesium (1.8-2.4) mg/dL Total Bilirubin (0.2-1.0) mg/dL AST (15-37) U/L ALT (14-59) U/L Alkaline Phosphatase (46-116) U/L Troponin I (<0.06) ng/mL NT-Pro-B Natriuret Pep (<300) pg/mL H Total Protein (6.4-8.2) g/dL Albumin (3.4-5.0) g/dL Urine Color Urine Clarity Urine pH Ur Specific [place] Urine Protein Urine Ketones Urine Blood Urine Nitrite Urine Bilirubin Urine Urobilinogen Ur Leukocyte Esterase Urine Glucose ECG Data Attestation: I personally reviewed and interpreted this ECG (s) as follows: Interpretation: #1 -- Rate of 122, machine read as sinus, right bundle branch block, left posterior fascicular block. Eventually interpreted as ventricular tachycardia with anterolateral ST depression. Post cardioversion #2 -- Rate of 66, sinus, PVCs. ST depressions noted in inferior and anterolateral leads. Questionable less than [address] elevation in lead III. HPI General Mode of arrival: EMS. Date/Time Provider Initiated Documentation: 07/14/20 08:56. Limitations to Documentation: no limitations. Information obtained by: patient and EMS. HPI Narrative: Patient is a 75-year-old female with a history of CHF, STEMI, coronary stent placement presents from home for generally feeling unwell and vomiting. Per EMS, heart rate noted in the 120s, oxygen saturation low 90s on 2 L nasal cannula, with unremarkable EKG and negative Covid screening questions. Patient states 3 days ago she developed fatigue and shortness of breath with exertion. She also admits to diaphoresis since yesterday. She states she vomited approximately five times since last night which is mainly been clear in food. She denies any chest pain. She states she did not take her Lasix yet today. She denies any fever, cough, diarrhea, recent antibiotics or recent hospital admission. Related Data Home Medications Medication Instructions Recorded Confirmed amiodarone 200 mg PO DAILY 11/08/16 07/14/20 aspirin [Aspir-81] 81 mg PO DAILY 11/08/16 07/14/20 furosemide 40 mg PO DAILY 11/08/16 07/14/20 metoprolol tartrate 50 mg PO DAILY 11/08/16 07/14/20 ibuprofen 200 mg capsule 200 mg PO QID PRN 06/19/18 07/14/20 fluticasone propionate 50 2 spray ALFREDO DAILY #18.2 ml 07/02/19 07/14/20 mcg/actuation nasal spray,suspension albuterol sulfate 90 mcg/actuation 2 puff INHALATION QID #18 g 12/31/19 07/14/20 aerosol inhaler levothyroxine 50 mcg tablet 50 mcg PO DAILY #90 tab 04/25/20 07/14/20 sacubitril 24 mg-valsartan 26 mg 1 tab PO BID 06/02/20 07/14/20 tablet Previous Rx's Medication Instructions Recorded fluticasone propionate 50 2 spray ALFREDO DAILY #18.2 ml 07/02/19 mcg/actuation nasal spray,suspension albuterol sulfate 90 mcg/actuation 2 puff INHALATION QID #18 g 12/31/19 aerosol inhaler levothyroxine 50 mcg tablet 50 mcg PO DAILY #90 tab 04/25/20 Allergies Allergy/AdvReac Type Severity Reaction Status Date / Time Latex, Natural Rubber Allergy Skin Rash Verified 07/14/20 08:46 General VICTORIANO: 3 Review of Systems All systems reviewed & are unremarkable except as noted in HPI and below Constitutional Constitutional: Reports as per HPI, Denies chills, Reports fatigue, Denies fever(s) and Reports weakness Eyes Eyes: Denies blurry vision ENT Ears, Nose, Mouth, and Throat: Denies dizziness, Denies sore throat and Denies throat swelling Cardiovascular Cardiovascular: Denies chest pain and Reports dyspnea Respiratory Respiratory: Denies cough and Reports dyspnea Gastrointestinal Gastrointestinal: Denies abdominal pain, Denies diarrhea and Reports vomiting Genitourinary Genitourinary: Denies hematuria and Denies dysuria Musculoskeletal Musculoskeletal: Denies back pain and Denies numbness Integumentary/Breasts Skin/Breast: Denies lesions and Denies rash Neurologic Neurologic: Denies dizziness, Denies localized weakness, Denies numbness and Reports weakness Endocrine Endocrine: Reports fatigue Allergic/Immunologic Allergic/Immunologic: Denies throat swelling [facility] Medical History (Updated 07/14/20 @ 10:43 by Elisabeth Ugarte DO) CHF (congestive heart failure) CHF (congestive heart failure) Diarrhea Hypertension Hypothyroidism Myocardial infarction : post STEMI and VT/ PCI to LAD:10-29 LVEF stable at 30-35% followed at [facility] [place] STEMI (ST elevation myocardial infarction) PCI V tach Implantable defibrillator Surgical History H/O section History of coronary artery stent placement Social History Smoking/Tobacco Use Status: Former Tobacco Use Smoking risk assessment performed?: Yes Alcohol Intake: never Drug use: Never Substance use type: does not use Do you feel safe at home: Yes Do you feel safe in your relationship?: Yes Exam Const General: cooperative and no acute distress Orientation: alert and awake HENMT Head: normal to inspection Ears: hearing grossly normal bilaterally and external ears normal Face and sinus: normal facial exam Mouth: mucous membranes dry Eyes General: appearance normal, both eyes and all related structures EOM: EOM intact bilaterally Neck Neck: normal visual inspection and No submandibular swelling Lymphatic: no lymphadenopathy noted Chest Chest: normal inspection of the chest and no tenderness Resp Effort & Inspection: normal respiratory effort and able to speak in complete sentences Auscultation: wheezes left lower and left upper Cardio Rate: regular rate Rhythm: regular rhythm GI Inspection: normal to inspection Palpation: soft, not firm, not rigid and nontender Auscultation: normal bowel sounds Skin General skin exam: no rashes or lesions noted Neuro General: patient alert, patient awake and patient oriented x3 Cognition: normal cognition Speech: speech normal Motor: muscle tone normal throughout Sensory Exam: no sensory deficits noted Extrem General: normal to inspection, full ROM, capillary refill normal, no calf tenderness bilaterally and no edema Psych Appearance: grossly normal Mental Status: mental status grossly normal Speech and Movement: speech and movement normal Affect: normal affect Procedures Procedural Sedation Indication: other (cardioversion - 200J x 1 with successful conversion from Vtach to sinus) Preparation: surveillance monitor applied, pulse oximeter, capnometry used, supplemental O2 applied, reversal agents at bedside, suction/airway equipment at bedside and IV secured Fentanyl: IV Fentanyl dose (mcg): 50 Midazolam: IV Midazolam dose (mg): 2 Patient Tolerated Procedure: well Complications: none Critical Care Time Critical Care Time Critical Care Time: Yes Total Critical Care Time: 90 Attestation: I spent 90 minutes of critical care time with this patient. This does not include time spent on separately reported billable procedures.
[2020-07-14 09:00] LABS: Abs Immature Grans 0.16 10^3/uL (0.0-0.06); Absolute Basophil Count 0.04 10^3/uL (0.0-0.2); Absolute Lymphocyte Count 1.15 10^3/uL (1.2-3.4); Absolute Neutrophil Count 18.72 10^3/uL (1.2-6.7); Basophils % 0.2; HCT 49.9 % (36.0-46.0); HGB 16.1 g/dL (11.2-15.7); Immature Grans % 0.7; Lymphocytes % 5.3; MCH 31.5 pg (27.0-33.0); MCHC 32.3 % (32.0-36.0); MCV 97.7 fL (80-95); MPV 10.6 fL (8.0-11.0); Monocytes % 7.5; Neutrophils % 86.3; Nucleated RBC 0 %; Platelet Count 300 10^3/uL (130-400); RBC 5.11 10^6/uL (3.93-5.22); RDW 14.1 % (11.7-14.6); RDW-SD 51.3 fL; WBC 21.69 10^3/uL (4.4-10.8)
[2020-07-14 09:10] LABS: Absolute Monocyte Count 1.63 10^3/uL (0.1-0.8)
[2020-07-14 09:14] LABS: INR 1.1 (0.9-1.1); PTT Activated 24.4 sec (21.0-27.5); Prothrombin Time 11.2 sec (9.3-11.0)
[2020-07-14 09:15] LABS: Diff Comment Diff Reviewed; RBC Morphology Normal
[2020-07-14 09:16] LABS: ALT 38 U/L (14-59); AST 44 U/L (15-37); Albumin 4.1 g/dL (3.4-5.0); Alkaline Phosphatase 112 U/L (46-116); Anion Gap 12.2 mmol/L (3-11); BUN 48 mg/dL (7-18); Bilirubin, Total 0.8 mg/dL (0.2-1.0); CO2 25.8 mmol/L (21.0-32.0); CREATININE 2.8 mg/dL (0.55-1.02); Chloride 98 mmol/L (98-107); Estimated GFR 16.47 (mL/min/1.73m2); Glucose 179 mg/dL (74-106); Magnesium 3.5 mg/dL (1.8-2.4); Potassium 5.8 mmol/L (3.5-5.1); Sodium 136 mmol/L (136-145); Total Protein 7.6 g/dL (6.4-8.2)
[2020-07-14 09:17] LABS: Troponin I 0.48 ng/mL (<0.06)
--- NOTE | 2020-07-14 09:22 | DI.RAD_ITS ---
Exam(s) XR CHEST 2V PA LATERAL EXAM: XR CHEST 2V PA LATERAL CLINICAL HISTORY: shortness of breath, r/o acute disease TECHNIQUE: COMPARISON: CR XR PORTABLE CHEST AP from 06/21/2019 FINDINGS: There is a transvenous cardiac pacemaker in position. There appears to be mild cardiomegaly. The lane ngs are predominantly clear with question of minimal chronic reticular radial densities seen peripher ally. These findings may be new since prior examination of June 21, 2019. Findings could represent ea rly CHF. No gross pleural effusion identified. IMPRESSION: Mild cardiomegaly, question early CHF. RADIATION DOSE DELIVERED: Total DLP
[2020-07-14 09:26] LABS: NT-proBNP 19954 pg/mL (<300)
[2020-07-14] MEDS: Aspirin 325 MG TAB PO (09:32)
[2020-07-14] MEDS: Normal Saline 250 ML IV (09:33)
[2020-07-14] MEDS: Ondansetron 4 MG/2 ML VIAL IVP (09:33)
[2020-07-14] MEDS: Furosemide 40 MG/4 ML VIAL IVP (09:33)
[2020-07-14] MEDS: Midazolam 2 MG/2 ML VIAL 4 MG IVP (10:25)
[2020-07-14] MEDS: fentaNYL 100 MCG/2 ML VIAL IVP (10:25)
--- NOTE | 2020-07-14 10:30 | RT.EKG_ITS ---
APPROVED REPORT Exam: Resting ECG Reason for Exam: Cardioverted Patient Location: E HR:66 bpm ECG Measurements Heart Rate 66 AXIS WI 210 P 75 QRSd 106 QRS 36 QT 442 T 166 QTc 462 Conclusion Sinus rhythm...normal P axis, V-rate 60- 99 Ventricular premature complex...V complex w/ short R-R interval Repol abnrm, prob ischemia, anterolateral lds...ST dep, T neg, I aVL V2-V6 I have reviewed and interpreted ECG and agree with software generated interpretation.
[2020-07-14] MEDS: Amiodarone 150 MG/3 ML VIAL IVP (10:32)
[2020-07-14] MEDS: PIPERACILLIN/TAZO 3.375 GM in Normal Saline 50 ML IVPB (11:11)
[2020-07-14] MEDS: Calcium Chloride 1000 MG/10 ML SYR IVP (11:37)
--- NOTE | 2020-07-14 17:46 | RESPIRATORY ---
Pt brought in and is complaining of SOB. Has increased HR @ 130, BS are diminished. Started on cpap of 7 and pt tolerated well, felt it helped immediately. Post cpap pt was cardioverted and placed on etco2 nc w/out complication. Pt feels comfortable and is no longer on cpap.
[2020-07-14] MEDS: Levalbuterol 1.25 MG/3 ML UPD VIAL (17:50)
== END 2020-07-14 11:50 | disposition short-term general hospital (02) ==
PROVIDERS: Emergency Provider Physician Assistant; PCP Emergency Medicine
DX: I47.2 Ventricular tachycardia (principal); R79.89 Other specified abnormal findings of blood chemistry; N17.9 Acute kidney failure, unspecified; N18.9 Chronic kidney disease, unspecified; I50.9 Heart failure, unspecified; R11.10 Vomiting, unspecified
CPT/HCPCS: 80053; 93005; 96361; 96365; 96366; 96368; 96374; 96375; 96376; 99291; 99292; 71046; 81003; 83735; 83880; 84484; 85025; 85610; 85730; 93010; 94640; J1940; J2250; J2405; J2543; J3010; J3490; J7614

== ENCOUNTER 2020-09-13 03:23 | Outpatient (CLI) | payer MEDICARE, SELFPAY ==
[2020-09-13 15:50] LABS: Anion Gap 10.4 mmol/L (3-11); BUN 38 mg/dL (7-18); CO2 26.6 mmol/L (21.0-32.0); CREATININE 1.4 mg/dL (0.55-1.02); Calcium 9.3 mg/dL (8.5-10.1); Chloride 102 mmol/L (98-107); Estimated GFR 36.66 (mL/min/1.73m2); Glucose 104 mg/dL (74-106); Potassium 4.9 mmol/L (3.5-5.1); Sodium 139 mmol/L (136-145)
== END 2020-09-13 03:24 | disposition home or self-care (01) ==
LOC: LBO 03:23
PROVIDERS: PCP Emergency Medicine
DX: I50.22 Chronic systolic (congestive) heart failure (principal)
CPT/HCPCS: 36415; 80048

== ENCOUNTER 2020-12-07 02:46 | Outpatient (CLI) | payer MEDICARE, SELFPAY ==
[2020-12-07 16:28] LABS: Anion Gap 10.3 mmol/L (3-11); BUN 25 mg/dL (7-18); CO2 25.7 mmol/L (21.0-32.0); CREATININE 1.4 mg/dL (0.55-1.02); Calcium 9.2 mg/dL (8.5-10.1); Chloride 101 mmol/L (98-107); Estimated GFR 36.66 (mL/min/1.73m2); Glucose 103 mg/dL (74-106); Potassium 4.6 mmol/L (3.5-5.1); Sodium 137 mmol/L (136-145)
== END 2020-12-07 02:47 | disposition home or self-care (01) ==
LOC: LBO 02:46
PROVIDERS: PCP Emergency Medicine; Visit Provider Emergency Medicine
DX: I10 Essential (primary) hypertension (principal)
CPT/HCPCS: 36415; 80048

== ENCOUNTER 2022-03-11 14:29 | Outpatient (REF) | payer MEDICARE, SELFPAY | END 2022-03-11 14:30 | disposition home or self-care (01) | LOC: LBN 14:29 | PROVIDERS: PCP Nurse Practitioner Family; Visit Provider Nurse Practitioner Family | DX: R31.9 Hematuria, unspecified (principal) | CPT/HCPCS: 87077; 87086; 87186 ==

== ENCOUNTER 2023-03-19 18:43 | Emergency (ER) | payer MEDICARE, SELFPAY ==
[2023-03-19] VITALS (57 sets, daily range): BP systolic 92–136; BP diastolic 44–111; PULSE 53–137; RESP 15–32; TEMP 36.2–36.5
--- NOTE | 2023-03-19 18:45 | RT.EKG_ITS ---
APPROVED REPORT Exam: Resting ECG Reason for Exam: rapid heart rate Patient Location: E HR:134 bpm ECG Measurements Heart Rate 134 AXIS ND 65 P 60 QRSd 184 QRS -85 QT 379 T 91 QTc 566 Conclusion Sinus tachycardia...rate> 99 Prominent P waves, nondiagnostic...wide/notched/biphasic P waves Right bundle branch block...QRSd>120, terminal axis(90,270) ST elevation secondary to IVCD...Multiple VCG criteria a-flutter with aberant conduction versus v-tach Abnormal Electrocardiogram
--- NOTE | 2023-03-19 18:51 | ED.GENADUL_ITS ---
HPI General Mode of arrival: ambulatory . Date/Time Provider Initiated Documentation: 03/19/23 18:51 . Limitations to Documentation: no limitations . Information obtained by: patient and family . HPI Narrative: Patient is a 77-year-old female with history of coronary artery disease, ischemic cardiomyopathy, ventricular tachycardia with ICD in place who presents with complaint of feeling unwell and weak on and off for the last 2 weeks. She denies any syncope. She denies any chest pain. She has not felt her defibrillator fire. She does have increased weakness, fatigue and shortness of breath with exertion. Denies any fever. Her cough is chronic in nature and unchanged. She has had no vomiting or diarrhea. She denies any urinary symptoms. She has not told anyone in her family she was feeling unwell until today when daughter came to visit. Related Data Home Medications Medication Instructions Recorded Confirmed aspirin 81 mg tablet,delayed 81 mg PO DAILY 11/08/16 03/19/23 release (Aspir-) fluticasone propionate 50 2 spray intranasal DAILY #18.2 mL 07/02/19 03/19/23 mcg/actuation nasal spray,suspension (Flonase Allergy Relief) albuterol sulfate 90 mcg/actuation 2 puff inhalation QID #18 grams 12/31/19 03/19/23 aerosol inhaler (Ventolin HFA) amiodarone 200 mg tablet 200 mg PO DAILY 11/19/21 03/19/23 apixaban 5 mg tablet 5 mg PO BID 11/19/21 03/19/23 empagliflozin 10 mg tablet 10 mg PO DAILY 11/19/21 03/19/23 (Jardiance) ezetimibe 10 mg tablet (Zetia) 10 mg PO DAILY 11/19/21 03/19/23 furosemide 40 mg tablet 40 mg PO DAILY 11/19/21 03/19/23 levothyroxine 75 mcg tablet 75 mcg PO DAILY #90 tabs 11/19/21 03/19/23 metoprolol tartrate 50 mg tablet 50 mg PO BID 11/19/21 03/19/23 sacubitril 49 mg-valsartan 51 mg 1 tab PO BID 11/19/21 03/19/23 tablet (Entresto) Previous Rx's Medication Instructions Recorded fluticasone propionate 50 2 spray intranasal DAILY #18.2 mL 07/02/19 mcg/actuation nasal spray,suspension (Flonase Allergy Relief) albuterol sulfate 90 mcg/actuation 2 puff inhalation QID #18 grams 12/31/19 aerosol inhaler (Ventolin HFA) levothyroxine 75 mcg tablet 75 mcg PO DAILY #90 tabs 11/19/21 Allergies Allergy/AdvReac Type Severity Reaction Status Date / Time Latex, Natural Rubber Allergy Skin Rash Verified 03/19/23 19:23 General VICTORIANO: 2 Review of Systems Narrative: Per HPI Exam Narrative Exam Narrative: Const: WDWN elderly female in NAD. HEENT: NC/AT. Normal facial exam. Eyes: Normal conjunctiva and sclera. Neck: Supple. Trachea midline. Lungs: Normal respiratory effort. Lungs are clear. Cor: RRR tachy. Good radial pulses. GI: Soft. NT/ND. Neuro: A+O x 3. Normal speech, mentation, gait. Cranial nerves II - XII grossly intact. No gross motor or sensory deficit. Ext: No C/C/E. Skin: Warm and dry without rash. Medical Decision Making Patient presenting to ED with general feeling of weakness, malaise, shortness of breath on exertion. She has noted to be in a wide-complex tachycardia on arrival with a rate in the 130 range. EKG and monitor suggest possible P waves at times. Review of her [facility] cardiology records shows that she has had a history of A-fib in the past but typically her arrhythmias are ventricular tachycardia. Patient's other vital signs are normal and she is mentating normally with no chest pain. She is on amiodarone 200 mg once a day as well as metoprolol tartrate 50 mg twice a day. IVs were established and fluids started at 100 mL/h. Given the possibility of atrial flutter with aberrant conduction she initially received 6 and then 12 mg of adenosine with absolutely no change in her rhythm. Approximately 5 minutes after the adenosine as we were discussing starting amiodarone her heart rate began to climb. She remained asymptomatic but can now feel the palpitations. Eventually she hit close to 170 and received a shock from her ICD. She converted to sinus rhythm for a very short period of time and went back into wide-complex tachycardia. Patient was given a loading dose of 150 mg of amiodarone over 10 minutes and then started on a drip of 1 mg/min. Very shortly after the loading dose she converted into a sinus rhythm with PVCs. Her EKG has ST depression and T wave inversion but this appears to be baseline and is unchanged from an EKG done in June of 2020. Laboratory studies are pending. Will discuss with cardiology at [facility] where she is followed. Laboratory studies look pretty good. She is mildly hemoconcentrated with a hemoglobin of 15.8 and hematocrit of 48.5. Kidney function is elevated with a BUN of 32 and a creatinine 1.9. Not sure of her most recent values as she has not had labs done here since 2021. Magnesium a little high at 2.5 but calcium and potassium are normal. Troponin is negative. Discussed with cardiology at [facility], Dr. Reyna. Patient will be excepted to [facility] ICU for further management, accepting physician Dr. Zuniga. Patient for the most part remains sinus bradycardic at this point with heart rate in the 50s. She has had 2 episodes of nonsustained V. tach while on the amiodarone but was asymptomatic. She has many PVCs otherwise. If continues to have episodes of V. tach cardiology recommending to start lidocaine drip in addition to the amiodarone. Patient aware of need for transfer. She consents to same and will go by ALS ambulance when bed available at [facility]. Medical Records Medical records reviewed: Yes I reviewed the patient's medical records. Medical records narrative: Cardiology notes from [facility] Lab Data Lab results reviewed: Yes I reviewed the patient's lab results. ECG Data Attestation: I personally reviewed and interpreted this ECG (s) as follows: Prior ECG tracings: available for review Interpretation: See EKG Quality:SDOH Health Related Social Needs: No Data to Display Critical Care Time Critical Care Time Critical Care Time: Yes Total Critical Care Time: 6 Attestation: Upon my evaluation, this patient had a high probability of imminent or life- threatening deterioration, which required my direct attention, intervention, and personal management. I have personally provided 60 minutes of critical care time exclusive of time spent on separately billable procedures. Time includes review of laboratory data, radiology results, discussion with consultants, and monitoring for potential decompensation. Interventions were performed as documented above. [facility] All Active Problems (Updated 03/19/23 @ 21:44 by Jefferson Yepez MD) Ventricular tachycardia (Chronic) Coronary artery disease (Chronic) On amiodarone therapy (Acute) Hypothyroid Acute kidney injury superimposed on chronic kidney disease (Acute) Acute CHF (Acute) Vomiting (Acute) Diarrhea (Acute) CHF (congestive heart failure) (Chronic) STEMI (ST elevation myocardial infarction) (Acute) PCI Tendinitis of left shoulder (Acute) Rotator cuff arthropathy of both shoulders (Chronic) Medical History Ischemic cardiomyopathy Ventricular tachycardia ICD in place Hypothyroidism CHF (congestive heart failure) Myocardial infarction : post STEMI and VT/ PCI to LAD:10-29 LVEF stable at 30-35% followed at [facility] Hypertension Surgical History History of coronary artery stent placement H/O section Social History Smoking/Tobacco Use Status: Former Tobacco Use Smoking risk assessment performed?: Yes Alcohol Intake: never Drug use: Never Substance use type: does not use Do you feel safe at home: Yes Do you feel safe in your relationship?: Yes Discharge Plan Disposition Patient Disposition: Transfer-Acute Inpatient Care Specific Acute Inpt Facility: [facility] Condition: Stable Discharge Details Clinical Impression: Ventricular tachycardia Primary Care Provider: None,None ED Provider: Jefferson Yepez Home Meds and New Rx's Prescriptions: No Action fluticasone propionate [Flonase Allergy Relief] 50 mcg/actuation spray,suspension 2 spray ALFREDO DAILY Qty: 18.2 0RF Rx Instructions: administer into each nostril levothyroxine 75 mcg tablet 75 mcg PO DAILY Qty: 90 3RF furosemide 40 mg tablet 40 mg PO DAILY apixaban 5 mg tablet 5 mg PO BID Jardiance 10 mg tablet 10 mg PO DAILY Entresto 49-51 mg tablet 1 tab PO BID ezetimibe [Zetia] 10 mg tablet 10 mg PO DAILY albuterol sulfate [Ventolin HFA] 90 mcg/actuation HFA aerosol inhaler 2 puff inhalation QID Qty: 18 6RF aspirin [Aspir-81] 81 MG tablet,delayed release (DR/EC) 81 mg PO DAILY metoprolol tartrate 50 mg tablet 50 mg PO BID amiodarone 200 mg tablet 200 mg PO DAILY
[2023-03-19] MEDS: Adenosine 6 MG/2 ML VIAL (19:18)
[2023-03-19] MEDS: Adenosine 6 MG/2 ML VIAL 12 MG IVP (19:19)
[2023-03-19] MEDS: Amiodarone in Dextrose 360 MG/200 ML BAG 33.333 MG IV (19:41)
[2023-03-19] MEDS: Normal Saline 1,000 ML 100 ML IV (19:43)
--- NOTE | 2023-03-19 19:45 | RT.EKG_ITS ---
APPROVED REPORT Exam: Resting ECG Reason for Exam: ekg changes Patient Location: E HR:58 bpm ECG Measurements Heart Rate 58 AXIS [place] 200 P 74 QRSd 98 QRS 29 QT 439 T 200 QTc 432 Conclusion Sinus bradycardia...rate< 60 Ventricular premature complex...V complex w/ short R-R interval Repol abnrm suggests ischemia, diffuse leads...ST-T neg, ant/lat/inf There are no significant changes compared to prior EKG performed on 07/14/2020 at 10:32. ST changes and T wave inversions are old and baseline for patient.
[2023-03-19 19:51] LABS: HCT 48.5 % (36.0-46.0); HGB 15.8 g/dL (11.2-15.7); MCH 31.8 pg (27.0-33.0); MCHC 32.6 % (32.0-36.0); MCV 98 fL (80-95); MPV 9.6 fL (8.0-11.0); Platelet Count 328 10^3/uL (130-400); RBC 4.97 10^6/uL (3.93-5.22); RDW-SD 53.8 fL; WBC 10.89 10^3/uL (4.4-10.8)
[2023-03-19 20:11] LABS: Absolute Eosinophil Count 2.07 10^3/uL (0.0-0.7); Absolute Lymphocyte Count 1.52 10^3/uL (1.2-3.4); Absolute Monocyte Count 0.33 10^3/uL (0.1-0.8); Absolute Neutrophil Count 6.97 10^3/uL (1.2-6.7); Atypical Lymphocytes % 7; Diff Comment Manual Differential; RBC Morphology Normal
[2023-03-19 20:15] LABS: ALT 29 U/L (14-59); AST 38 U/L (15-37); Albumin 3.5 g/dL (3.4-5.0); Alkaline Phosphatase 113 U/L (46-116); BUN 32 mg/dL (7-18); Bilirubin, Total 0.3 mg/dL (0.2-1.0); CREATININE 1.9 mg/dL (0.55-1.02); Calcium 9.5 mg/dL (8.5-10.1); Chloride 99 mmol/L (98-107); Estimated GFR 26.86 (mL/min/1.73m2); Glucose 134 mg/dL (74-106); Magnesium 2.5 mg/dL (1.8-2.4); Potassium 4.3 mmol/L (3.5-5.1); Sodium 137 mmol/L (136-145); Total Protein 7.2 g/dL (6.4-8.2); Troponin I < 50 ng/L (< or =60)
== END 2023-03-19 22:30 | disposition short-term general hospital (02) ==
PROVIDERS: Emergency Provider Emergency Medicine
DX: I47.20 Ventricular tachycardia, unspecified (principal); I25.10 Atherosclerotic heart disease of native coronary artery without angina pectoris; I25.2 Old myocardial infarction; I11.0 Hypertensive heart disease with heart failure; I50.32 Chronic diastolic (congestive) heart failure; R94.31 Abnormal electrocardiogram [ECG] [EKG]; Z95.810 Presence of automatic (implantable) cardiac defibrillator; Z79.82 Long term (current) use of aspirin; Z79.01 Long term (current) use of anticoagulants
CPT/HCPCS: 80053; 93005; 96374; 99285; 83735; 84484; 85025; 93010; J0153; J0283

== ENCOUNTER 2023-04-03 22:35 | Emergency (ER) | payer MEDICARE, SELFPAY ==
--- NOTE | 2023-04-03 22:30 | RT.EKG_ITS ---
APPROVED REPORT Exam: Resting ECG Reason for Exam: chest pain, sob Patient Location: E HR:67 bpm ECG Measurements Heart Rate 67 AXIS [place] 211 P 79 QRSd 93 QRS 72 QT 432 T 69 QTc 456 Conclusion Sinus rhythm...normal P axis, V-rate 60- 99 Nonspecific repol abnormality, diffuse leads...ST dep, T flat/neg, ant/lat/inf No ST segment or T wave abnormalities to suggest occlusive [place]
[2023-04-03 22:38] VITALS: BP 166/50; PULSE 68; RESP 18; TEMP 36.7; O2SAT 97
[2023-04-03 22:41] VITALS: BP 166/50; PULSE 69; O2SAT 97
[2023-04-03 22:46] VITALS: BP 136/79; PULSE 63; PULSE 64; RESP 13
--- NOTE | 2023-04-03 23:00 | DI.RAD_ITS ---
Exam(s) XR CHEST 2V PA LATERAL EXAM: XR CHEST 2V PA LATERAL CLINICAL HISTORY: shortness of breath TECHNIQUE: 2D digital imaging was performed of the chest. Two images were obtained. PA and lateral views were obtained. COMPARISON: CR XR CHEST 2V PA LATERAL from 07/14/2020 FINDINGS: MEDIASTINUM: Normal. HEART: Normal. There is again seen a cardiac device in the left chest wall. PULMONARY VASCULATURE: Normal. LUNGS: Clear. PLEURAL SPACE: No pleural effusion or pneumothorax. BONE:Within normal limits for the patient's age. OTHER FINDINGS:Normal. IMPRESSION: No acute pulmonary findings. DATA REPOSITORY: RADIATION DOSE DELIVERED:
--- NOTE | 2023-04-03 23:24 | W.ED.GENAD ---
HPI General Mode of arrival: ambulatory. Date/Time Provider Initiated Documentation: 04/03/23 22:37. Limitations to Documentation: no limitations. Information obtained by: patient and family. HPI Narrative: 77yo F with hx CAD, HTN, hypothyroid, CHF, ICD in place, recent hospital admission to [facility] with cardiac ablation dced earlier this week, presenting due to home pulse oximeter reading 60%. She also reports that today she has had some mild right sided intermittent pinching chest/rib pain with inspiration. This has sometimes made her feel like she can't take a deep breath. No worsening LE edema or HARRIS. No diaphoresis, nausea, or ICD firing at any point. She is otherwise in her usual state of health with no fevers, chills, rash, vomiting, abdominal pain, numbness, tingling, weakness, or other concerns. Related Data Home Medications Medication Instructions Recorded Confirmed aspirin 81 mg tablet,delayed 81 mg PO DAILY 11/08/16 04/03/23 release (Aspir-) fluticasone propionate 50 2 spray intranasal DAILY #18.2 mL 07/02/19 04/03/23 mcg/actuation nasal spray,suspension (Flonase Allergy Relief) albuterol sulfate 90 mcg/actuation 2 puff inhalation QID #18 grams 12/31/19 04/03/23 aerosol inhaler (Ventolin HFA) amiodarone 200 mg tablet 200 mg PO DAILY 11/19/21 04/03/23 apixaban 5 mg tablet 5 mg PO BID 11/19/21 04/03/23 empagliflozin 10 mg tablet 10 mg PO DAILY 11/19/21 04/03/23 (Jardiance) ezetimibe 10 mg tablet (Zetia) 10 mg PO DAILY 11/19/21 04/03/23 furosemide 40 mg tablet 40 mg PO DAILY 11/19/21 04/03/23 levothyroxine 75 mcg tablet 75 mcg PO DAILY #90 tabs 11/19/21 04/03/23 amiodarone 400 mg tablet 400 mg PO DAILY 04/03/23 04/03/23 digoxin 125 mcg (0.125 mg) tablet 0.125 mg PO DAILY 04/03/23 04/03/23 metoprolol succinate 25 mg 25 mg PO DAILY 04/03/23 04/03/23 tablet,extended release 24 hr sacubitril 24 mg-valsartan 26 mg 0.5 tab PO BID 04/03/23 04/03/23 tablet (Entresto) lidocaine 5 % topical patch 1 patch topical DAILY #15 ea 04/04/23 (Lidocan III) Previous Rx's Medication Instructions Recorded fluticasone propionate 50 2 spray intranasal DAILY #18.2 mL 07/02/19 mcg/actuation nasal spray,suspension (Flonase Allergy Relief) albuterol sulfate 90 mcg/actuation 2 puff inhalation QID #18 grams 12/31/19 aerosol inhaler (Ventolin HFA) levothyroxine 75 mcg tablet 75 mcg PO DAILY #90 tabs 11/19/21 lidocaine 5 % topical patch 1 patch topical DAILY #15 ea 04/04/23 (Lidocan III) Allergies Allergy/AdvReac Type Severity Reaction Status Date / Time Latex, Natural Rubber Allergy Skin Rash Verified 04/03/23 22:45 General Stated Complaint: SOB VICTORIANO: 3 Review of Systems Narrative: see HPI Exam Narrative Exam Narrative: General: Alert, well appearing, well nourished, in no acute distress. Head: Normocephalic, atraumatic Neck: Trachea midline, ?Neck supple. ENT: ?MMM.? No oropharygeal lesions or exudate. Cardiac: ?RRR, no murmurs appreciated Chest: Right lateral chest wall mildly TTP. Resp: No respiratory distress. CTAB. Abd: ?Soft, non-distended, nontender : ?No suprapubic tenderness. Extremities: ?No deformities.? No peripheral edema. Neurologic: GCS 15. ? Moves all extremities freely against gravity Course Vital Signs Vital signs: Vital Signs Temperature 36.7 C 04/03/23 22:38 Pulse 68 04/03/23 22:38 Respiratory Rate 18 04/03/23 22:38 Blood Pressure 166/50 H 04/03/23 22:38 Pulse Oximetry 97 04/03/23 22:38 Temperature 36.7 C 04/03/23 22:38 Temperature Source Temporal Artery Scan 04/03/23 22:38 Pulse 68 04/03/23 22:38 Respiratory Rate 18 04/03/23 22:38 Respiratory Effort Normal, Non-Labored 04/03/23 22:57 Respiratory Depth Normal 04/03/23 22:57 Respiratory Pattern Normal 04/03/23 22:57 Blood Pressure 166/50 H 04/03/23 22:38 Pulse Oximetry 97 04/03/23 22:38 Oxygen Delivery Method Room Air 04/03/23 22:38 Oxygen Flow Rate 0 04/03/23 22:38 Pain Level 3 04/03/23 22:57 Medical Decision Making 77yo F with hx CAD, HTN, hypothyroid, CHF, ICD in place, recent hospital admission to [facility] with cardiac ablation dced earlier this week, presenting due to home pulse oximeter reading 60%. She also reports that today she has had some mild right sided intermittent pinching chest/rib pain with inspiration. No significant respiratory distress when sat was reading low. Vital signs reassuring on arrival, o2 sat 97+% on room air. Well appearing, no respiratory distress, no increased work of breathing, clear lungs; does have some reproducible right chest wall tenderness. Suspect home reading was not accurate, however patient high risk so will evaluate for ACS, infection, PE, pneumo, arrhythmia, etc. No cough, fever, GI symtpoms, etc. to suggest infectious process. EKG sinus in the 60's, acceptable intervals, no ST segment or T wave abnormalities to suggest occlusive CO. CXR independently reviewed, no focal pneumonia or pneumothorax or significant pulmonary edema on my view, agree with radiology read below. Labs reviewed as below, CBC with no actionable abnormalities, CMP reassuring with Cr 1.3 (most recent prior here 1.9), BNP moderately elevated at 3027, dimer 1002 just barely above YEARS threshold, initial trop negative and repeat troponin not rising. Given pleuritic pain and + dimer, CTA for PE ordered and independently reviewed; no large saddle embolus on my view, agree with radiology read below. Discussed with [facility] cardiology Dr. Britton; BNP at [facility] prior to DC was ~8500, agrees trop likely 2/t ablation, patient did have clear coronaries on cardiac cath, agrees appropriate for outpatient followup and unlikely primary cardiac pathology. On reassessment she remains well appearing, reassuring vital signs, reports pain much improved after lidocaine patch. Discharged home; discharge instructions and return precautions were reviewed with patient and family who verbalized understanding. All questions were answered and she is in full agreement with the plan. Medical Records Medical records reviewed: Yes I reviewed the patient's medical records. Imaging Data Radiologic Study: Imaging: X-Ray Radiologist's impression: IMPRESSION: No acute finding. Radiologic Study #2: Imaging: CT Scan Radiologist's impression: 1. No acute finding. 2. Pulmonary nodules up to 4 mm. As per Fleischner Society 2017 guidelines for follow-up and management of pulmonary nodules: For patients at low risk (minimal or absent history of smoking and of other known risk factors), no routine follow-up. For patient at high risk (history of smoking or of other known risk factors), recommend optional CT at 12 months. Lab Data Lab results reviewed: Yes I reviewed the patient's lab results. Labs: Laboratory Tests Range/Units 04/03/23 23:03 WBC (4.4-10.8) 10^3/uL 8.58 RBC (3.93-5.22) 10^6/uL 4.11 Hgb (11.2-15.7) g/dL 13.0 Hct (36.0-46.0) % 39.6 MCV (80-95) fL 96 H MCH (27.0-33.0) pg 31.6 MCHC (32.0-36.0) % 32.8 RDW (11.7-14.6) % 14.3 Plt Count (130-400) 10^3/uL 335 MPV (8.0-11.0) fL 9.2 Immature Gran % 0.5 Neutrophils % 70.5 Lymphocytes % 10.7 Monocytes % 10.7 Eosinophils % 6.6 Basophils % 1.0 Nucleated RBC % (0.0-0.3) % 0.0 Absolute Neutrophils (1.2-6.7) 10^3/uL 6.04 Absolute Lymphocytes (1.2-3.4) 10^3/uL 0.92 L Absolute Monocytes (0.1-0.8) 10^3/uL 0.92 H Absolute Eosinophils (0.0-0.7) 10^3/uL 0.57 Absolute Basophils (0.0-0.2) 10^3/uL 0.09 PT (9.1-11.1) sec 12.7 H INR (0.9-1.1) 1.3 H APTT (23.6-32.8) sec 34.1 H D-Dimer (<500) ng/mlFEU 1002 H Sodium (136-145) mmol/L 140 Potassium (3.5-5.1) mmol/L 3.8 Chloride (98-107) mmol/L 101 Carbon Dioxide (21.0-32.0) mmol/L 28.8 Anion Gap (3-11) mmol/L 10.2 BUN (7-18) mg/dL 29 H Creatinine (0.55-1.02) mg/dL 1.3 H Est GFR (CKD-EPI 2020) (mL/min/1.73m2) 42.35 Glucose (74-106) mg/dL 104 Calcium (8.5-10.1) mg/dL 9.4 Magnesium (1.8-2.4) mg/dL 2.1 Total Bilirubin (0.2-1.0) mg/dL 0.6 AST (15-37) U/L 29 ALT (14-59) U/L 21 Alkaline Phosphatase (46-116) U/L 112 Troponin I (< or =60) ng/L 214 H* NT-Pro-B Natriuret Pep (<300) pg/mL 3027 H Total Protein (6.4-8.2) g/dL 6.9 Albumin (3.4-5.0) g/dL 3.2 L Quality:SDOH Health Related Social Needs: No Data to Display PFSH All Active Problems (Updated 04/04/23 @ 02:06 by Radha Oneal MD) Chest pain (Acute) Ventricular tachycardia (Chronic) Coronary artery disease (Chronic) On amiodarone therapy (Acute) Hypothyroid Acute kidney injury superimposed on chronic kidney disease (Acute) Acute CHF (Acute) Vomiting (Acute) Diarrhea (Acute) CHF (congestive heart failure) (Chronic) STEMI (ST elevation myocardial infarction) (Acute) PCI Tendinitis of left shoulder (Acute) Rotator cuff arthropathy of both shoulders (Chronic) Medical History Ischemic cardiomyopathy Ventricular tachycardia ICD in place Hypothyroidism CHF (congestive heart failure) Myocardial infarction : post STEMI and VT/ PCI to LAD:10-29 LVEF stable at 30-35% followed at [facility] Hypertension Surgical History History of coronary artery stent placement H/O section Social History Smoking/Tobacco Use Status: Former Tobacco Use Smoking risk assessment performed?: Yes Alcohol Intake: never Drug use: Never Substance use type: does not use Housing: house Do you feel safe at home: Yes Do you feel safe in your relationship?: Yes Discharge Plan Disposition Patient Disposition: Home Condition: Good Discharge Details Clinical Impression: Chest pain Primary Care Provider: Cha Márquez ED Provider: Radha Oneal Home Meds and New Rx's Prescriptions: New lidocaine [Lidocan III] 5 % adhesive patch,medicated 1 patch topical DAILY Qty: 15 0RF Rx Instructions: leave on most painful area for up to 12 hrs Continued fluticasone propionate [Flonase Allergy Relief] 50 mcg/actuation spray,suspension 2 spray ALFREDO DAILY Qty: 18.2 0RF Rx Instructions: administer into each nostril levothyroxine 75 mcg tablet 75 mcg PO DAILY Qty: 90 3RF furosemide 40 mg tablet 40 mg PO DAILY apixaban 5 mg tablet 5 mg PO BID Jardiance 10 mg tablet 10 mg PO DAILY ezetimibe [Zetia] 10 mg tablet 10 mg PO DAILY albuterol sulfate [Ventolin HFA] 90 mcg/actuation HFA aerosol inhaler 2 puff inhalation QID Qty: 18 6RF aspirin [Aspir-81] 81 MG tablet,delayed release (DR/EC) 81 mg PO DAILY amiodarone 200 mg tablet 200 mg PO DAILY digoxin 125 mcg (0.125 mg) tablet 0.125 mg PO DAILY Entresto 24-26 mg tablet 0.5 tab PO BID Hold Instructions: Changed by Provider amiodarone 400 mg tablet 400 mg PO DAILY metoprolol succinate 25 mg tablet extended release 24 hr 25 mg PO DAILY Discharge Instructions Instructions: Chest Pain (ED) Additional Instructions: You can take tylenol and use a lidocaine patch for your pain; follow the instructions on the container. Call your primary care doctor today to schedule an appointment for within the next 4 days to follow up on your visit here. Your CT scan showed a nodule on your lung; mention this to them as they may want to get a repeat scan to see if it is changing. Return to the emergency department for new or worsening symptoms including new/different/worse chest pain, difficulty breathing, swelling in your legs, feeling like you are going to pass out, or if you have any other concerns. Referrals: Cha Márquez NP [Primary Care Provider] - Discharge Data Discharge Date/Time-TO BE ENTERED AT DEPARTURE: 04/04/23 02:42
[2023-04-03 23:25] LABS: Abs Immature Grans 0.04 10^3/uL (0.0-0.06); Absolute Basophil Count 0.09 10^3/uL (0.0-0.2); Absolute Eosinophil Count 0.57 10^3/uL (0.0-0.7); Absolute Lymphocyte Count 0.92 10^3/uL (1.2-3.4); Absolute Monocyte Count 0.92 10^3/uL (0.1-0.8); Absolute Neutrophil Count 6.04 10^3/uL (1.2-6.7); Eosinophils % 6.6; HCT 39.6 % (36.0-46.0); Immature Grans % 0.5; Lymphocytes % 10.7; MCH 31.6 pg (27.0-33.0); MCHC 32.8 % (32.0-36.0); MCV 96 fL (80-95); MPV 9.2 fL (8.0-11.0); Monocytes % 10.7; Neutrophils % 70.5; Platelet Count 335 10^3/uL (130-400); RBC 4.11 10^6/uL (3.93-5.22); RDW 14.3 % (11.7-14.6); RDW-SD 50.4 fL; WBC 8.58 10^3/uL (4.4-10.8)
[2023-04-03 23:33] LABS: INR 1.3 (0.9-1.1); Prothrombin Time 12.7 sec (9.1-11.1)
[2023-04-03 23:42] LABS: ALT 21 U/L (14-59); AST 29 U/L (15-37); Albumin 3.2 g/dL (3.4-5.0); Alkaline Phosphatase 112 U/L (46-116); Anion Gap 10.2 mmol/L (3-11); BUN 29 mg/dL (7-18); Bilirubin, Total 0.6 mg/dL (0.2-1.0); CO2 28.8 mmol/L (21.0-32.0); CREATININE 1.3 mg/dL (0.55-1.02); Calcium 9.4 mg/dL (8.5-10.1); Chloride 101 mmol/L (98-107); Estimated GFR 42.35 (mL/min/1.73m2); Glucose 104 mg/dL (74-106); Magnesium 2.1 mg/dL (1.8-2.4); Potassium 3.8 mmol/L (3.5-5.1); Sodium 140 mmol/L (136-145); Total Protein 6.9 g/dL (6.4-8.2)
[2023-04-03 23:44] LABS: Troponin I 214 ng/L (< or =60)
[2023-04-03 23:45] LABS: PTT Activated 34.1 sec (23.6-32.8)
[2023-04-03 23:53] LABS: NT-proBNP 3027 pg/mL (<300)
[2023-04-03] MEDS: Aspirin 81 MG CHEW 243 MG CH (23:53)
[2023-04-03] MEDS: Apixaban 5 MG TAB PO (23:53)
[2023-04-04] VITALS (15 sets, daily range): BP systolic 106–146; BP diastolic 60–100; PULSE 60–70; RESP 14–24; O2SAT 97–100
--- NOTE | 2023-04-04 | DI.CT_ITS ---
Exam(s) CT CHEST PE CTA EXAM: CT CHEST PE CTA CLINICAL HISTORY: pleurtic CP, elevated dimer. TECHNIQUE: Imaging Protocol: Axial CT angiography was performed with multi-slice acquisition and mu lti-planar and/or 3D reconstructions. CONTRAST MATERIAL: Intravenous: Omnipaque 350 contrast volume:75 mL COMPARISON: CR,XR XR CHEST 2V PA LATERAL from 04/03/2023 FINDINGS: Tracheobronchial tree: Patent where visualized. Pulmonary parenchyma: No consolidation or dominant measurable mass. There is a 4 mm pulmonary nodule in the right lower lobe (series 8, image 335). There is a 2nd 3 mm nodule more inferiorly in the rig ht lower lobe (series 8, image 368). Pulmonary Arteries: No evidence of filling defect to suggest pulmonary emboli. Mediastinum and Jennifer: No dominant adenopathy or fluid collection. The esophagus is unremarkable. Visualized thyroid gland: Unremarkable. Pleura: No effusion or pneumothorax. Heart: Cardiomegaly. Coronary artery calcifications are present. No evidence of right heart strain. The RV to LV ratio is less than 1. no pericardial effusion. Aorta: Thoracic aorta non-dilated. No evidence of dissection. Atherosclerosis is present. Upper abdomen: Unremarkable. Tubes, Catheters, and Lines: There is a cardiac monitoring device in place. Soft tissues: Unremarkable. Bones: Within normal limits for the patient's age. IMPRESSION: 1. No evidence of pulmonary embolism, thoracic aortic dissection or aneurysm. 2. Two right lower lobe pulmonary nodules. The largest measures 4 mm (series 8, image 335). For low risk patients, no routine follow-up is recommended. For high risk patients (history of smoking or o ther risk factors), optional CT scan in 12 months is recommended. (Or[place] et al, 2017). RADIATION DOSE DELIVERED: 269.82mGy.cm Total DLP DATA REPOSITORY: All CT scans at this facility are submitted to the National Radiology Data Registry (NRDR) Dose Index Registry (DIR) with the [employer] (ACR). RADIATION OPTIMIZATION: All CT scans at this facility use at least one of these dose optimization te chniques: automated exposure control; mA and/or kV adjustment per patient size (includes targeted exa ms where dose is matched to clinical indication); or iterative reconstruction.
[2023-04-04 00:04] LABS: D-Dimer 1002 ng/mlFEU (<500)
--- NOTE | 2023-04-04 00:13 | DI.VRAD_ITS ---
PROCEDURE INFORMATION: Exam: XR Chest Exam date and time: 04/03/2023 11:28 PM Age: 77 years old Clinical indication: Shortness of breath TECHNIQUE: Imaging protocol: Radiologic exam of the chest. Views: 2 views. COMPARISON: CR XR CHEST 2V PA LATERAL 07/14/2020 9:15 AM FINDINGS: Tubes, catheters and devices: Left chest wall AICD. Lungs: Unremarkable. No consolidation. Pleural spaces: Unremarkable. No pleural effusion. No pneumothorax. Heart/Mediastinum: Unremarkable. No cardiomegaly. Bones/joints: Unremarkable. IMPRESSION: No acute finding. Dictated and Authenticated by: Adilson Miller MD. Ordering:ROHIT Garcia MD
[2023-04-04] MEDS: Normal Saline - Diluent 50 ML VIAL IJ (00:40)
[2023-04-04] MEDS: Omnipaque 350 MG/ML 100 ML BTL IJ (00:40)
[2023-04-04] MEDS: Normal Saline Flush 10 ML SYR IVP (00:41)
--- NOTE | 2023-04-04 00:50 | DI.VRAD_ITS ---
PROCEDURE INFORMATION: Exam: CTA Chest With Contrast Exam date and time: 04/04/2023 12:27 AM Age: 77 years old Clinical indication: Pain; Pleuordynia; Additional info: Pleurtic cp, elevated dimer TECHNIQUE: Imaging protocol: Computed tomographic angiography of the chest with contrast. Exam focused on the arteries. 3D rendering (Not supervised by radiologist): MIP and/or 3D reconstructed images were created by the technologist. Contrast material: OMNI 350; Contrast volume: 75 ml; Contrast route: INTRAVENOUS (IV); COMPARISON: CR XR CHEST 2V PA LATERAL 04/03/2023 11:28 PM FINDINGS: Pulmonary arteries: Normal. No pulmonary emboli. Aorta: Unremarkable. No aortic aneurysm. No aortic dissection. Lungs: Pulmonary nodules up to 4 mm. Pleural spaces: Unremarkable. No pneumothorax. No pleural effusion. Heart: Unremarkable. No cardiomegaly. No pericardial effusion. Lymph nodes: Unremarkable. No enlarged lymph nodes. Bones/joints: Unremarkable. No acute fracture. Soft tissues: Unremarkable. IMPRESSION: 1. No acute finding. 2. Pulmonary nodules up to 4 mm. As per Fleischner Society 2017 guidelines for follow-up and management of pulmonary nodules: For patients at low risk (minimal or absent history of smoking and of other known risk factors), no routine follow-up. For patient at high risk (history of smoking or of other known risk factors), recommend optional CT at 12 months. Dictated and Authenticated by: Adilson Miller MD. Ordering:ROHIT Garcia MD
[2023-04-04] MEDS: Lidocaine 5% Patch 1 PATCH TP (01:05)
[2023-04-04 02:26] LABS: Troponin I 187 ng/L (< or =60)
== END 2023-04-04 02:42 | disposition home or self-care (01) ==
PROVIDERS: Emergency Provider Student in an Organized Health Care Education/Training Program; PCP Nurse Practitioner Family
DX: R07.9 Chest pain, unspecified (principal); R91.8 Other nonspecific abnormal finding of lung field; I25.10 Atherosclerotic heart disease of native coronary artery without angina pectoris; I25.2 Old myocardial infarction; I11.0 Hypertensive heart disease with heart failure; I50.9 Heart failure, unspecified; E03.9 Hypothyroidism, unspecified; Z95.5 Presence of coronary angioplasty implant and graft; Z79.01 Long term (current) use of anticoagulants; Z87.891 Personal history of nicotine dependence; Z79.82 Long term (current) use of aspirin; Z95.810 Presence of automatic (implantable) cardiac defibrillator
CPT/HCPCS: 36415; 71275; 80053; 93005; 99285; 71046; 83735; 83880; 84484; 85025; 85379; 85610; 85730; 93010; 99284; J3490

== ENCOUNTER 2023-11-28 14:52 | Outpatient (CLI) | payer MEDICARE, SELFPAY ==
[2023-11-28 15:19] LABS: ESR 2 mm/hr (0-30)
[2023-11-28 15:58] LABS: Uric Acid 6.3 mg/dL (2.6-6.0)
[2023-11-28 21:49] LABS: Rheumatoid Factor 19.8 IU/mL (<12.0)
[2023-12-01 14:54] LABS: ANA Interpretation Negative (Negative)
== END 2023-11-28 14:53 | disposition home or self-care (01) ==
LOC: LBO 14:52
PROVIDERS: PCP Family Medicine; Visit Provider Family Medicine
DX: M25.50 Pain in unspecified joint (principal); Z23 Encounter for immunization
CPT/HCPCS: 36415; 85652; 84550; 86038; 86431

== ENCOUNTER 2024-06-03 16:52 | Outpatient (REF) | payer MEDICARE, SELFPAY ==
[2024-06-03 21:30] LABS: Abs Immature Grans 0.02 10^3/uL (0.0-0.06); Absolute Basophil Count 0.07 10^3/uL (0.0-0.2); Absolute Eosinophil Count 0.16 10^3/uL (0.0-0.7); Absolute Lymphocyte Count 1.23 10^3/uL (1.2-3.4); Absolute Monocyte Count 0.73 10^3/uL (0.1-0.8); Absolute Neutrophil Count 4.97 10^3/uL (1.2-6.7); Eosinophils % 2.2 %; HCT 47.7 % (36.0-46.0); Immature Grans % 0.3 %; Lymphocytes % 17.1 %; MCH 31.3 pg (27.0-33.0); MCHC 31.4 % (32.0-36.0); MCV 99 fL (80-95); Monocytes % 10.2 %; Neutrophils % 69.2 %; Platelet Count 191 10^3/uL (130-400); RDW 14.6 % (11.7-14.6); RDW-SD 53.6 fL; WBC 7.18 10^3/uL (4.4-10.8)
[2024-06-03 21:56] LABS: ALT 24 U/L (14-59); AST 23 U/L (15-37); Albumin 3.9 g/dL (3.4-5.0); Alkaline Phosphatase 83 U/L (46-116); Anion Gap 7.5 mmol/L (3-11); BUN 29 mg/dL (7-18); Bilirubin, Total 0.5 mg/dL (0.2-1.0); CO2 30.5 mmol/L (21.0-32.0); CREATININE 1.6 mg/dL (0.55-1.02); Calcium 9.7 mg/dL (8.5-10.1); Chloride 100 mmol/L (98-107); Glucose 99 mg/dL (74-106); Potassium 4.6 mmol/L (3.5-5.1); Sodium 138 mmol/L (136-145); Total Protein 6.7 g/dL (6.4-8.2)
== END 2024-06-03 16:53 | disposition home or self-care (01) ==
LOC: LBN 16:52
PROVIDERS: PCP Family Medicine; Visit Provider Nurse Practitioner Family
DX: L03.90 Cellulitis, unspecified (principal)
CPT/HCPCS: 80053; 85025

== ENCOUNTER → 2024-06-22 10:52 | Outpatient (BNVA) | payer MEDICARE, SELFPAY | PROVIDERS: PCP Family Medicine; Referring Provider Family Medicine; Visit Provider Physical Therapy Assistant | DX: I73.9 Peripheral vascular disease, unspecified (principal) | CPT/HCPCS: 93922 ==

== ENCOUNTER 2024-09-27 01:56 | Outpatient (CLI) | payer MEDICARE, SELFPAY ==
--- NOTE | 2024-09-27 12:54 | DI.RAD_ITS ---
Exam(s) XR LUMBAR SPINE COMPLETE EXAM: XR LUMBAR SPINE COMPLETE CLINICAL HISTORY: Worsening low back pain,m54.50. TECHNIQUE: 2D digital imaging was performed. Five views. COMPARISON: No exams were available for comparison FINDINGS: BONES: No fracture or destructive lesion. Vertebral body heights are maintained. Advanced facet hypertrophy identified at L4-5 and L5-S1. No spondylolysis. Slight spondylolisthesis at L4-5. DISKS: Multilevel disc space narrowing. There are severe degenerative disc changes, greatest at L 2 3 with prominent osteophytes projecting toward the right. This causes degenerative levoscoliosis. SOFT TISSUE: Vascular calcifications. Large quantity of fecal material. IMPRESSION: Severe degenerative changes, greatest at L2-3 DATA REPOSITORY: RADIATION DOSE DELIVERED:
== END 2024-09-27 02:16 ==
LOC: DI 01:56
PROVIDERS: PCP Family Medicine; Visit Provider Nurse Practitioner Family
DX: M51.360 Other intervertebral disc degeneration, lumbar region with discogenic back pain only (principal)
CPT/HCPCS: 72110

== ENCOUNTER 2024-09-27 04:37 | Outpatient (CLI) | payer MEDICARE, SELFPAY ==
[2024-09-27 13:57] LABS: TSH (W/Ref FT4) 7.47 uIU/mL (0.36-3.74)
== END 2024-09-27 04:38 | disposition home or self-care (01) ==
LOC: LBO 04:37
PROVIDERS: PCP Family Medicine; Visit Provider Nurse Practitioner Family
DX: E03.9 Hypothyroidism, unspecified (principal)
CPT/HCPCS: 36415; 72110; 84439; 84443

== ENCOUNTER 2024-10-17 14:46 | Emergency (ER) | payer MEDICARE, SELFPAY ==
[2024-10-17 14:47] VITALS: BP 140/78; PULSE 62; RESP 18; TEMP 36.6; O2SAT 98
--- NOTE | 2024-10-17 15:12 | W.ED.GENAD ---
Discharge Plan Discharge Details Chief Complaint: RashLesion Clinical Impression: Stasis dermatitis of both legs, Macrocytosis without anemia, Inguinal hernia, right Primary Care Provider: Shakila Sellers ED Provider: Mp Ospina [place] Meds and New Rx's Prescriptions: Continued furosemide 20 mg tablet 10 mg PO DAILY Rx Instructions: Takes .5 tab daily albuterol sulfate 90 mcg/actuation HFA aerosol inhaler 2 puff inhalation Q6H PRN (Reason: shortness of breath or wheezing) Qty: 8.5 0RF furosemide 40 mg tablet 40 mg PO DAILY apixaban 5 mg tablet 5 mg PO BID Jardiance 10 mg tablet 10 mg PO DAILY ezetimibe [Zetia] 10 mg tablet 10 mg PO DAILY flu vac 2023 [id number](PF) 45 mcg (15 mcg x 3)/0.5 mL syringe 0.5 ml IM ONCE Qty: 0.5 0RF acetaminophen 500 mg tablet 1,000 mg PO TID PRN levothyroxine 75 mcg tablet 75 mcg PO DAILY sacubitril-valsartan [Entresto] 24-26 mg tablet 1 tab PO BID fluticasone propionate [Flonase Allergy Relief] 50 mcg/actuation spray,suspension 2 spray ALFREDO DAILY PRN (Reason: allergies) Qty: 18.2 0RF Rx Instructions: administer into each nostril amiodarone 200 mg tablet 200 mg PO DAILY tramadol 50 mg tablet 50 mg PO Q8H PRN (Reason: pain) Qty: 60 1RF aspirin [Aspir-81] 81 MG tablet,delayed release (DR/EC) 81 mg PO DAILY metoprolol succinate 25 mg tablet extended release 24 hr 25 mg PO DAILY lidocaine [Lidocan III] 5 % adhesive patch,medicated 1 patch topical DAILY Qty: 15 0RF Rx Instructions: leave on most painful area for up to 12 hrs doxycycline hyclate 100 mg capsule 100 mg PO BID Patient Comments: TAKE ONE CAPSULE BY MOUTH TWICE A DAY FOR 7 DAYS cephalexin 500 mg capsule 500 mg PO Q6H Patient Comments: TAKE ONE CAPSULE BY MOUTH EVERY 6 HOURS FOR 10 DAYS Discharge Instructions Additional Instructions: You were seen in the emergency department for your leg swelling. You likely have stasis dermatitis which is a chronic inflammatory skin condition caused by difficulty with your veins returning blood back up to your heart. This causes leakage from the small blood vessels which leads to inflammation and breakdown of your skin. If you develop increasing redness in 1 area fevers or any increased pain please return to the emergency department. Otherwise wear your compression stockings. Please continue taking your medications as previously prescribed and return if you develop shortness of breath or any chest pain or swelling in your calves. Otherwise please follow-up with your primary care provider. As we discussed you likely have an inguinal hernia. If this bulge gets caught out changes color or gives you any abdominal pain please return to the emergency department. Discharge Data Discharge Date/Time-TO BE ENTERED AT DEPARTURE: 10/17/24 16:38 HPI General Date/Time Provider Initiated Documentation: 10/17/24 14:48. HPI Narrative: MDM This is an overall quite well-appearing normothermic and not tachycardic 79-year-old female with history of CKD ischemic cardiomyopathy and HFrEF with lower extremity edema for which she will receive assessment of her labs. Given bilateral lower extremity edema and no significant erythema my suspicion is highest for stasis dermatitis. Given bilateral symptoms my suspicion is low for DVT. Less likely lipodermatosclerosis given no woody texture. Less likely contact dermatitis given lack of external exposure to any allergens or contact irritants. Less likely dermatohypersensitivity reaction given no recent drugs viruses nor insect exposure. Unlikely cryptococcal cellulitis as patient does not have history of HIV. Will assess electrolytes and renal function to evaluate for calciphylaxis. No pain out of proportion to suggest necrotizing soft tissue infection. I considered sepsis however patient is quite reassuring vitals so I felt the risks of broad-spectrum antibiotics and the risks of false positive from blood cultures await the benefits. Patient did have a soft right inguinal hernia. She has no signs of incarceration or strangulation so I did not feel she required lactate assessment with CT scan or surgical consult in the ED. She is no fluctuance to suggest abscess to her legs. Her feet are warm and well-perfused so not concern for critical limb ischemia so I do not feel patient required a CT angiogram of her abdomen with runoffs. She does not feel short of breath and she is not hypoxic nor she had paroxysmal nocturnal dyspnea nor orthopnea so I did not feel that she required IV diuretics. 4:10 PM CBC lacks anemia thrombocytopenia and leukocytosis. There is macrocytosis without anemia. She would likely benefit from leg elevation compression stockings and avoidance of trauma. 4:24 PM Basic metabolic panel showing CKD but no superimposed DEEPAK. No hyperglycemia. Very very mild hyponatremia. No anion gap and normal bicarbonate. HPI This is a patient with a history of heart and kidney issues presenting with leg swelling. The patient reports that her cellulitis is not improving despite being on two different antibiotics. A few weeks ago, she noticed a small area of redness on her left leg, which has since spread. She sought medical attention a week later and was prescribed cephalexin on 10/08/2024. However, the condition did not improve over the weekend, prompting her to contact [facility]. Her medication was then switched to doxycycline last 10/13/2024. This morning, she reported a worsening of her condition and expressed a desire to take both antibiotics simultaneously. She experienced a temperature of 99?F during her initial clinic visit and has been feeling feverish intermittently since then. The redness in her leg has deepened to a crimson color and then turned purple. She has been applying ice to the area, which provides temporary relief for about 3 hours. She also reports pain in her right leg, which she describes as similar to the deep pain associated with shingles. She is currently on diuretics for her heart condition and has had some kidney issues. She does not report any shortness of breath, chest pain, or abdominal pain. She has an upcoming appointment with pain management at [facility] for her lumbar area. Exam General: Well-appearing in no acute distress speaking in complete sentences. Head: Normocephalic, atraumatic. Eye: Extraocular eye movements intact. No conjunctival injection. No scleral icterus. Ear, nose, mouth, throat: Grossly normal inspection. Normal voice, handling secretions normally. Neck: Trachea midline. Cardiovascular: Well-perfused distal extremities. Respiratory: Nonlabored respiration. Clear lungs bilaterally. Gastrointestinal: Nondistended abdomen. Soft abdomen. No rebound. No guarding. Soft right lower quadrant inguinal hernia. No signs of incarceration or strangulation. No rash to abdomen. No abdominal tenderness. Musculoskeletal: Moving all 4 extremities spontaneously. Skin: Bilateral lower extremities with 1+ nonpitting edema. No significant erythema to lower extremities. No warmth. No fluctuance. No streaking signs of infection. Intact PT DP pulses bilaterally. Neurologic: Alert and appropriate, no apparent acute deficits. Related Data Home Medications ?Medication ?Instructions ?Recorded ?Confirmed aspirin 81 mg tablet,delayed 81 mg PO DAILY 11/08/16 10/17/24 release (Aspir-) apixaban 5 mg tablet 5 mg PO BID 11/19/21 10/17/24 empagliflozin 10 mg tablet 10 mg PO DAILY 11/19/21 10/17/24 (Jardiance) ezetimibe 10 mg tablet (Zetia) 10 mg PO DAILY 11/19/21 10/17/24 furosemide 40 mg tablet 40 mg PO DAILY 11/19/21 10/17/24 metoprolol succinate 25 mg 25 mg PO DAILY 04/03/23 10/17/24 tablet,extended release 24 hr lidocaine 5 % topical patch 1 patch topical DAILY #15 ea 04/04/23 10/17/24 (Lidocan III) fluticasone propionate 50 2 spray intranasal DAILY PRN 04/23/23 10/17/24 mcg/actuation nasal allergies #18.2 mL spray,suspension (Flonase Allergy Relief) levothyroxine 75 mcg tablet 75 mcg PO DAILY 04/23/23 10/17/24 sacubitril 24 mg-valsartan 26 mg 1 tab PO BID 04/23/23 10/17/24 tablet (Entresto) amiodarone 200 mg tablet 200 mg PO DAILY 05/22/23 10/17/24 acetaminophen 500 mg tablet 1,000 mg PO TID PRN 11/28/23 10/17/24 albuterol sulfate 90 mcg/actuation 2 puff inhalation Q6H PRN 08/30/24 10/17/24 aerosol inhaler shortness of breath or wheezing #8.5 grams furosemide 20 mg tablet 10 mg PO DAILY 09/23/24 10/17/24 tramadol 50 mg tablet 50 mg PO Q8H PRN pain #60 tabs 09/24/24 10/17/24 cephalexin 500 mg capsule 500 mg PO Q6H 10/17/24 10/17/24 doxycycline hyclate 100 mg capsule 100 mg PO BID 10/17/24 10/17/24 Previous Rx's ?Medication ?Instructions ?Recorded lidocaine 5 % topical patch 1 patch topical DAILY #15 ea 04/04/23 (Lidocan III) fluticasone propionate 50 2 spray intranasal DAILY PRN 04/23/23 mcg/actuation nasal allergies #18.2 mL spray,suspension (Flonase Allergy Relief) albuterol sulfate 90 mcg/actuation 2 puff inhalation Q6H PRN 08/30/24 aerosol inhaler shortness of breath or wheezing #8.5 grams tramadol 50 mg tablet 50 mg PO Q8H PRN pain #60 tabs 09/24/24 Allergies Allergy/AdvReac Type Severity Reaction Status Date / Time Latex, Natural Rubber Allergy Skin Rash Verified 10/17/24 14:52 General Stated Complaint: RashLesion VICTORIANO: 4 Course Vital Signs Vital signs: Vital Signs Temperature 36.6 C 10/17/24 14:47 Pulse 62 10/17/24 14:47 Respiratory Rate 18 10/17/24 14:47 Blood Pressure 140/78 10/17/24 14:47 Pulse Oximetry 98 10/17/24 14:47 Temperature 36.6 C 10/17/24 14:47 Pulse 62 10/17/24 14:47 Respiratory Rate 18 10/17/24 14:47 Blood Pressure 140/78 10/17/24 14:47 Pulse Oximetry 98 10/17/24 14:47 Oxygen Delivery Method Room Air 10/17/24 14:47 Oxygen Flow Rate 0 10/17/24 14:47 Pain Level 6 10/17/24 14:47 Medical Decision Making Quality:SDOH Health Related Social Needs: Health related social needs transpo insecurity house/econ circumstance lonely/isolated Health related social needs details loneliness PFSH All Active Problems (Updated 10/17/24 @ 16:21 by Mp Ospina MD) Inguinal hernia, right (Acute) Macrocytosis without anemia (Acute) Stasis dermatitis of both legs (Acute) Low back pain (Acute) Arthralgia (Acute) Rheumatoid factor 19 Heart failure with reduced ejection fraction (Chronic) Ischemic cardiomyopathy (Chronic) Coronary artery disease (Chronic) Ventricular tachycardia (Chronic) S/p ICD, ablation Atrial flutter (Chronic) Mitral regurgitation (Chronic) Moderate to severe CKD (chronic kidney disease) stage 3, GFR 30-59 ml/min (Chronic) Hypertension (Chronic) Hypothyroidism (Chronic) ICD (implantable cardioverter-defibrillator) in place (Chronic ~2011) Not MRI compatible Medical History STEMI (ST elevation myocardial infarction) (2011) S/p ALOK to LAD X 2 Surgical History H/O cardiac radiofrequency ablation (03/27/23) For Vtach History of coronary artery stent placement H/O section Social History Smoking/Tobacco Use Status: Former Tobacco Use Smoking risk assessment performed?: Yes Alcohol Intake: never Drug use: Never Substance use type: does not use Household members: none Housing: house Number of Children: 2 number of grandchildren: 1 Education Level: college Details: BS literature 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
[2024-10-17 16:00] VITALS: BP 133/69; PULSE 56; RESP 18; O2SAT 98
[2024-10-17 16:03] LABS: Abs Immature Grans 0.03 10^3/uL (0.0-0.06); HCT 43.1 % (36.0-46.0); HGB 13.3 g/dL (11.2-15.7); Immature Grans % 0.3 %; MCH 30.4 pg (27.0-33.0); MCHC 30.9 % (32.0-36.0); MCV 99 fL (80-95); MPV 9.0 fL (8.0-11.0); Platelet Count 275 10^3/uL (130-400); RBC 4.37 10^6/uL (3.93-5.22); RDW 15.6 % (11.7-14.6); RDW-SD 57.1 fL; WBC 10.10 10^3/uL (4.4-10.8)
[2024-10-17 16:11] LABS: Anion Gap 9.4 mmol/L (3-11); BUN 36 mg/dL (7-18); CO2 27.6 mmol/L (21.0-32.0); Calcium 9.6 mg/dL (8.5-10.1); Chloride 98 mmol/L (98-107); Estimated GFR 35.23 (mL/min/1.73m2); Glucose 94 mg/dL (74-106); Potassium 4.5 mmol/L (3.5-5.1); Sodium 135 mmol/L (136-145)
[2024-10-17 16:36] VITALS: BP 127/47; PULSE 56; RESP 18; O2SAT 98
== END 2024-10-17 16:38 ==
LOC: ER 15:31
PROVIDERS: Emergency Provider Emergency Medicine; PCP Family Medicine
DX: I87.2 Venous insufficiency (chronic) (peripheral) (principal); R60.0 Localized edema; D75.89 Other specified diseases of blood and blood-forming organs; K40.90 Unilateral inguinal hernia, without obstruction or gangrene, not specified as recurrent; Z59.89 Other problems related to housing and economic circumstances; Z59.82 Transportation insecurity; Z60.8 Other problems related to social environment
CPT/HCPCS: 99284; 99283; 36415; 80048; 85025

== ENCOUNTER 2024-11-02 03:39 | Outpatient (CLI) | payer MEDICARE, SELFPAY ==
--- NOTE | 2024-11-02 05:45 | DI.CT_ITS ---
Exam(s) CT LUMBAR SPINE WO EXAM: CT LUMBAR SPINE WO CLINICAL HISTORY: pain low back to RLE,LUMBAR SPONDYLOSIS,LUMBAR RADICULITIS,M54.16,M43.06. TECHNIQUE: Imaging Protocol: Axial computed tomography images with coronal and sagittal reformatted images were created and reviewed COMPARISON: CR XR LUMBAR SPINE COMPLETE from 09/27/2024 FINDINGS: Bones: The last intervertebral disc space is designated the L5/S1 level for the numbering purpose of this examination. There are endplate osteophytes at multiple levels of the lumbar spine particularly at L2-L3. There is marked disc space narrowing at L2-L3. There is a vacuum disc at L3-L4. There is grade 1 spondylolisthesis of L4 on L5. There is no spondylolysis. There is no acute fracture or subluxation seen in the lumbar spine. No destructive changes are present. There is a left convex lumbar scoliosis centered at L2-L3. T12-L1: No disc herniations or bulges are present. No central spinal canal or neural foraminal stenosis. L1-2: There is a mild diffuse disc bulge. No central spinal canal or neural foraminal stenosis. L2-3: There is a mild diffuse disc bulge. There are degenerative changes of the facets. There is mild narrowing of the central spinal canal. There is mild bilateral neural foraminal narrowing. L3-4: There is a prominent diffuse disc bulge with extension into the right neural foramen. There are degenerative changes of the facets and hypertrophy of the ligamentum flavum. These all contribute to cause marked central spinal canal stenosis. There is marked right neural foraminal stenosis. No significant left neural foraminal stenosis is seen. L4-5: There is a diffuse disc bulge. There are degenerative changes of the facets and hypertrophy of the ligamentum flavum. These all contribute to cause marked central spinal canal stenosis. There is no significant right neural foraminal stenosis and [id number] left neural foraminal stenosis. L5-S1: No disc herniations or bulges are present. No central spinal canal or neural foraminal stenosis. Soft Tissues: The visualized SI joints and sacrum are will maintained. The paraspinal soft tissues are unremarkable. IMPRESSION: 1. Marked degenerative changes seen at L4-L5 causing marked central spinal canal stenosis and [id number] left neural foraminal stenosis. 2. Degenerative changes at L3-L4 causing marked central spinal canal stenosis and marked right neural foraminal stenosis. 3. Degenerative changes at L2-L3 causing mild central spinal canal and mild bilateral neural foraminal narrowing. RADIATION DOSE DELIVERED: 627.05mGy.cm Total DLP 627.05mGy.cm Total DLP DATA REPOSITORY: All CT scans at this facility are submitted to the National Radiology Data Registry (NRDR) Dose Index Registry (DIR) with the [employer] (ACR). RADIATION OPTIMIZATION: All CT scans at this facility use at least one of these dose optimization techniques: automated exposure control; mA and/or kV adjustment per patient size (includes targeted exams where dose is matched to clinical indication); or iterative reconstruction.
== END 2024-11-02 03:59 ==
LOC: DI 03:39
PROVIDERS: PCP Family Medicine; Visit Provider Anesthesiology Pain Medicine
DX: M43.06 Spondylolysis, lumbar region (principal); M54.16 Radiculopathy, lumbar region
CPT/HCPCS: 72131

== ENCOUNTER 2024-11-08 08:53 | Outpatient (CLI) | payer MEDICARE, SELFPAY ==
--- NOTE | 2024-11-08 06:00 | DI.RAD_ITS ---
Exam(s) XR PAIN CLINIC SACRIOILIAC 2V EXAM: XR PAIN CLINIC SACRIOILIAC 2V CLINICAL HISTORY: DX: Sacroiliac Dysfunction. TECHNIQUE: Fluoroscopy was provided for the referring physician for guidance with performing pain clinic injection procedure. COMPARISON: No exams were available for comparison FINDINGS: Please see procedure note for details. Fluoro time: 30 seconds RADIATION DOSE DELIVERED: Ka,r=5.5 mGy
[2024-11-08 09:01] VITALS: BP 132/66; PULSE 51; RESP 20; TEMP 37; O2SAT 97
--- NOTE | 2024-11-08 09:15 | PDOC.PAIN ---
Date of service: 11/08/24 Time of Service: 09:41 Pain Managment Procedure Note Procedure Note Procedure Note: ?Sacroiliac Joint Steroid Injection ? Location: ? ? Left SI joint ? Pre-procedure Diagnosis: Sacroiliitis, not elsewhere classified - M46.1 ? Post-procedure Diagnosis:? The same as above ? Sedation:? NONE ? Medication: Depo-Medrol 40 mg, bupivacaine 0.5% 1 mL, Omnipaque 0.25 mL per joint ? Estimated blood loss:? less than 2 cc ? Surgeon:? Angel Ambriz MD ? COMMENT: THIS WILL BE BOTH DIAGNOSTIC AND THERAPEUTIC. Patient had a CT scan of her lumbar spine which we reviewed. She does have some stenosis both central and left foraminal at L4-5. Currently she is not having any radicular symptoms. ? Procedure Detail:? The procedure and potential risks were explained to the patient and informed written consent was obtained. The patient was escorted to the procedure room and placed in the prone position. Pillows were utilized for proper positioning and comfort. Time out was performed in the procedure room with nursing staff confirming the patient's identity, procedure to be performed, allergies, and any blood thinning or anti-platelet medications. The patient's lumbosacral area was prepped with ChloraPrep and draped in a sterile fashion. Sterile technique was maintained throughout the procedure.? Sterile gloves were used, a face mask was worn, and new single dose vials of all medications were used with the top being swabbed with alcohol and given time to dry prior to withdrawal of medication. Lidocaine 1% was used to anesthetize the skin. With fluoroscopic guidance, a 22-gauge 3.5 spinal needle was advanced into the posteroinferior aspect of the Left SI joint . Confirmation of intra-articular position of the needle tip was obtained with injection of 0.25cc of Omnipaque 240 contrast which showed appropriate spread within the joint.? Following negative aspiration, 40mg of methylprednisolone mixed with 1 mL of bupivacaine 0.5% was injected.? The needle was gently removed. ?The patient tolerated the procedure well and was discharged home with instructions.? Permanent images saved and recorded. Plan:? Follow up prn. PAIN PRE PROCEDURE 10/27 POST PROCEDURE COMMENT: 10% BETTER AFTER INJECTION. Will reassess and if not better consider epidural steroid injection Coding Conscious Sedation used for procedure: No CPT Codes: SI Joint Inj; incl Fluoro - 26240 ([id number] ~G) Additional Codes: Date of Service (18806) Date of service: 11/08/24 Diagnoses: Sacroiliitis, not elsewhere classified - M46.1
[2024-11-08 09:35] VITALS: PULSE 65; O2SAT 97
[2024-11-08] MEDS: Bupivacaine 0.5% Pres-Free 10 ML VIAL IJ (09:42)
[2024-11-08] MEDS: methylPREDNISolone ACETATE 80 MG/ML VIAL IJ (09:42)
[2024-11-08] MEDS: Omnipaque 240 MG/ML 50 ML BTL IJ (09:42)
[2024-11-08] MEDS: Nerve Block Tray 1 EACH MC (09:43)
== END 2024-11-08 08:54 | disposition home or self-care (01) ==
LOC: PC 08:54
PROVIDERS: PCP Family Medicine; Visit Provider Anesthesiology Pain Medicine
DX: M54.50 Low back pain, unspecified (principal); M46.1 Sacroiliitis, not elsewhere classified
CPT/HCPCS: 27096; 72200; J0665; J1010; Q9967